=== PATIENT | male | born 1960 | race Caucasian/White ===

== ENCOUNTER 2016-03-25 17:18 | Inpatient (IN) ==
[2016-03-25] MEDS ORDERED: *HR* HYDROcodone/Acet 5/325 mg TABLET PO ONE (20:14)
--- NOTE | 2016-03-25 20:16 | Emergency Department Note ---
Disposition Clinical Impression: Edema of right lower extremity, Pain of right calf, Cellulitis of right lower extremity, Shortness of breath, Cough, Tachycardia, Sepsis Disposition: Still a Patient Condition: Fair Referrals: Dexter Cline DO [Primary Care Provider] - Forms: ED Satisfaction Letter Time of Disposition: 23:06 Extremity Problem HPI - General Chief complaint: ED Extremity Problem,Nontraumatic Stated complaint: Right foot red and swollen//cough Time Seen by Provider: 03/25/16 19:53 Source: patient, family Mode of arrival: ambulatory Limitations: no limitations Nursing Notes Reviewed: Yes Vital Signs Reviewed: Yes - History of Present Illness HPI Narrative: Patient is a 55-year-old male with past medical history of hypertension, diabetes. He presents today due to 2 complaints. First complaint is right lower extremity edema, calf pain, redness from right calf down to the right foot. Patient states that he had a previous right ankle sprain in September and had an initial swelling and mild redness then that went away. The past 2 weeks , he has had a return of the symptoms. Patient also states that around the same time that this began, he began having a nagging cough, shortness of breath that worsens when he is up walking around. He was diagnosed with bronchitis about a week ago and put on antibiotics and states that these do not help with his symptoms. He denies any chest pain, any other HEENT symptoms such as sinus congestion, runny nose, sore throat. He states that his cough is nonproductive. Denies any fevers, abdominal pain, nausea, vomiting, changes in bowel or bladder habits. Patient's was concerned about possible blood clot and encouraged him to be seen today. Pain Scale: 7 - Related Data Home Medications Medication Instructions Recorded Confirmed Canagliflozin [Invokana] 300 mg PO DAILY 09/25/15 09/25/15 Metformin [Glucophage] 500 mg PO DAILY 09/25/15 09/25/15 SitaGLIPtin [Januvia] 25 mg PO DAILY 09/25/15 09/25/15 Gabapentin [Neurontin] 600 mg PO 03/17/16 Insulin Glargine [Lantus] 0 unit 03/17/16 Insulin LISPRO [Humalog] 100 unit SQ 03/17/16 Lisinopril [Zestril] 5 mg PO 03/17/16 03/17/16 Ropinirole HCl [Requip] 2 mg PO 03/17/16 Previous Rx's Medication Instructions Recorded Benzonatate [Tessalon] 200 mg PO TID PRN #20 capsule 03/17/16 Doxycycline 100 mg PO BID #14 capsule 03/17/16 Allergies Allergy/AdvReac Type Severity Reaction Status Date / Time No Known Allergies Allergy Verified 03/25/16 17:50 Constitutional: Denies: fever ENT ED: Denies: ear pain, throat pain, congestion Cardiovascular: Denies: chest pain Respiratory: Reports: cough, dyspnea. Denies: wheezes, hemoptysis, sputum production Gastrointestinal: Denies: abdominal pain, nausea, vomiting, diarrhea Genitourinary: Denies: urgency, dysuria, frequency Musculoskeletal: Reports: myalgia, other (Lower extremity swelling). Denies: back pain, neck pain Integumentary: Denies: rash Neurological: Denies: headache, weakness, numbness, paresthesias Past Medical History - Past Medical History Attestation: Yes The following information was validated with the patient. Source: patient Medical history: Reports: diabetes, hypertension Psychiatric history: Reports: depression - Social History Smoking Status: Never smoker Smokeless Tobacco Status: No Alcohol use: Reports: none Drug use: Reports: none Physical Exam - General Limitations: no limitations General appearance: alert - Head Head exam: atraumatic, normocephalic, normal inspection - Eye Eye exam: Present: normal appearance, PERRL, EOMI - ENT ENT exam: normal exam, normal oropharynx, mucous membranes moist - Neck Neck exam: Present: normal inspection, full ROM, trachea midline - Chest Chest inspection: Present: normal inspection, symmetric chest wall rise - Respiratory Respiratory exam: Present: normal lung sounds bilaterally. Absent: respiratory distress, wheezes - Cardiovascular Cardiovascular exam: Present: normal rhythm, tachycardia, normal heart sounds - Abdominal Exam Abdominal exam: Present: soft, Non-Tender. Absent: tenderness, distention, guarding, rebound, rigidity - Extremities Exam Extremities exam: Present: other (Right lower extremity is edematous from knee down the foot. There is erythema from mid calf down that as well. There is calf pain on exam.) - Neurological Exam Neurological exam: Present: alert, oriented X3 - Psychiatric Psychiatric exam: Present: normal affect, normal mood - Skin Skin exam: Present: warm, dry, intact Course Course Narrative: Patient is tachycardic, oxygen saturation 93% on presentation but is now 97% when at rest. The rest of the vitals were within normal limits. Physical exam shows Right lower extremity is edematous from knee down the foot. There is erythema from mid calf down that as well. There is calf pain on exam. Due to right lower extremity edema, warmth, calf pain - current concern for right lower extremity DVT. This could be cellulitis as well, but will obtain ultrasound of the right lower extremity to rule out DVT. Also due to tachycardia, low oxygen saturation, and a swollen right lower extremity, there is also concern for pulmonary embolism. We will obtain CTA of the chest to rule out PE. Patient's upper respiratory symptoms may be due to a viral bronchitis since his symptoms did not go away with antibiotics, but a PE cannot be missed. 23:03 patient has leukocytosis. Patient also has tachycardia and source of infection right lower extremity cellulitis. Sepsis labs were ordered. So far, right lower extremity was negative for DVT. Currently waiting on CTA of the chest. Due to meeting sepsis criteria (not giving full sepsis fluids due to RLE edema and fear of fluid overload), if CTA is negative for PE, patient will still likely need to be admitted to the hospital for cellulitis of the right lower extremity and sepsis criteria. Will need IV antibiotics. Patient has been signed out to Dr. Robertson and Arturo Lancaster for further care and dispo Vital Signs Temperature 99.1 F 03/25/16 17:44 Pulse Rate 110 03/25/16 17:44 Respiratory Rate 18 03/25/16 17:44 Blood Pressure 146/95 03/25/16 17:44 O2 Sat by Pulse Oximetry 93 L 03/25/16 17:44 Temperature 99.1 F 03/25/16 17:44 Pulse Rate 117 03/25/16 22:08 Respiratory Rate 18 03/25/16 22:08 Blood Pressure 132/70 03/25/16 22:08 O2 Sat by Pulse Oximetry 95 03/25/16 22:08 Oxygen Delivery Oxygen Delivery Room Air Extremity Problem, [place] - [facility] Narrative Medical decision making narrative: patient has leukocytosis. Patient also has tachycardia and source of infection right lower extremity cellulitis. Sepsis labs were ordered. So far, right lower extremity was negative for DVT. Currently waiting on CTA of the chest. Due to meeting sepsis criteria, if CTA is negative for PE, patient will still likely need to be admitted to the hospital for cellulitis of the right lower extremity and sepsis criteria. Will need IV antibiotics. Patient has been signed out to Dr. Robertson and Arturo Lancaster for further care and dispo - Medical Records Medical records reviewed: Yes I reviewed the patient's medical records. - Lab Data Lab results reviewed: Yes I reviewed the patient's lab results. Result diagrams: 03/25/16 22:09 03/25/16 20:28 Lab Results 03/25/16 03/25/16 03/25/16 Range/Units 20:28 20:28 20:28 WBC 14.5 H (4.3-11.1) K/mcL RBC 4.17 L (4.19-5.50) M/mcL Hgb 12.2 L (12.9-16.9) g/dL Hct 37.7 (37.5-50.1) % MCV 90.4 (83.0-100.0) fL MCH 29.3 (28.0-33.3) pg MCHC 32.4 (31.6-35.5) g/dL RDW 12.9 (11.5-14.5) % Plt Count 570 H (140-400) K/mcL MPV 9.3 L (9.4-12.4) fL Immature Gran % 1.4 (0-4) % Seg Neutrophils % 75.6 % Lymphocytes % 11.8 % Monocytes % 8.1 % Eosinophils % 2.5 % Basophils % 0.6 % Neutrophils # 11.0 H (1.6-8.9) K/mcL Lymphocytes # 1.7 (0.6-4.6) K/mcL Monocytes # 1.2 (0.0-1.3) K/mcL Eosinophils # 0.4 (0.0-0.6) K/mcL Basophils # 0.1 (0.0-0.2) K/mcL Immature Plt Fraction (1.1-6.1) % PT (9.4-12.1) Seconds INR APTT (26.0-36.0) Seconds Sodium 137 (136-145) mEq/L Potassium 3.9 (3.5-4.5) mEq/L Chloride 101 (98-109) mEq/L Carbon Dioxide 25 (19-29) mEq/L BUN 15 (8-26) mg/dL Creatinine 0.84 (0.72-1.25) mg/dL Est GFR ( Amer) > 60 (> 60) Est GFR (Non-Af Amer) > 60 (> 60) BUN/Creatinine Ratio 18 (6-26) Glucose 263 H (70-99) mg/dL Calculated Osmolality 294 (280-300) Lactic Acid (0.5-2.2) mmol/L Calcium 9.1 (8.6-10.8) mg/dL Phosphorus 3.1 (2.3-4.7) mg/dL Magnesium 1.5 L (1.6-2.6) mg/dL Troponin I 0.01 (0-0.03) ng/mL 03/25/16 03/25/16 03/25/16 Range/Units 20:28 22:09 22:09 WBC 13.3 H (4.3-11.1) K/mcL RBC 4.09 L (4.19-5.50) M/mcL Hgb 11.9 L (12.9-16.9) g/dL Hct 36.0 L (37.5-50.1) % MCV 88.0 (83.0-100.0) fL MCH 29.1 (28.0-33.3) pg MCHC 33.1 (31.6-35.5) g/dL RDW 12.8 (11.5-14.5) % Plt Count 587 H (140-400) K/mcL MPV 9.1 L (9.4-12.4) fL Immature Gran % 1.4 (0-4) % Seg Neutrophils % 73.1 % Lymphocytes % 13.4 % Monocytes % 9.2 % Eosinophils % 2.4 % Basophils % 0.5 % Neutrophils # 9.8 H (1.6-8.9) K/mcL Lymphocytes # 1.8 (0.6-4.6) K/mcL Monocytes # 1.2 (0.0-1.3) K/mcL Eosinophils # 0.3 (0.0-0.6) K/mcL Basophils # 0.1 (0.0-0.2) K/mcL Immature Plt Fraction 1.5 (1.1-6.1) % PT 14.0 H (9.4-12.1) Seconds INR 1.3 APTT 30.4 (26.0-36.0) Seconds Sodium (136-145) mEq/L Potassium (3.5-4.5) mEq/L Chloride (98-109) mEq/L Carbon Dioxide (19-29) mEq/L BUN (8-26) mg/dL Creatinine (0.72-1.25) mg/dL Est GFR ( Amer) (> 60) Est GFR (Non-Af Amer) (> 60) BUN/Creatinine Ratio (6-26) Glucose (70-99) mg/dL Calculated Osmolality (280-300) Lactic Acid 1.2 (0.5-2.2) mmol/L Calcium (8.6-10.8) mg/dL Phosphorus (2.3-4.7) mg/dL Magnesium (1.6-2.6) mg/dL Troponin I (0-0.03) ng/mL - Radiology Data Radiology results reviewed: Yes I reviewed the patient's radiology results. - EKG Data EKG attestation: Yes I reviewed and interpreted this EKG. EKG results narrative: 03/25/2016 at 20:55. Sinus tachycardia. Rate 123. QTC 373. QRS 93. Normal axis. No acute ST elevation or depression. Possible Q-wave in lead 2, 3 there were present on previous EKG on 06/24/2010 S.B.A.R. - S.B.A.R. Situation: Demographics, MOA Background: Presenting Complaint, Relevant PMH, Meds, & Allergies Assessment: Vital Signs, Course and respsone to treatment, Exam Concerns, Patient/Family Expectation, Pertinant Lab Results, Outstanding Labs Recommendation: Barrier(s) to disposition, Recommendation based on pending studies, treatments, or consults S.B.A.R. Report Given to: Dr. Robertson and Arturo Lancaster S.B.A.ROwen Repor Time: 23:05 Attestation Statement - Attestation Attestation: I examined this patient and my medical decision-making was reviewed with the BUNCH TRIMMER MOLD/PA/Advanced Practice Nurse/Resident Physician. I agree with the documented findings, disposition and treatment plan as described except to the extent set forth below. Patient emergency department complaining of right leg redness pain and swelling. Patient has a history of a prior sprain of the ankle the leg to some similar symptoms a few months ago. Patient also complains of some cough and upper respiratory symptoms. No fever. On exam is awake alert no distress. Lungs are diminished but clear. Abdomen soft nontender. He has a moderate amount of swelling to the right leg below the knee. It is erythematous and warm. One area of seeping clear fluid. Plan. Labs and ultrasound.
[2016-03-25 20:52] LABS: Basophils # 0.1 K/mcL (0.0-0.2); Basophils % 0.6 %; Eosinophils # 0.4 K/mcL (0.0-0.6); Eosinophils % 2.5 %; Hematocrit 37.7 % (37.5-50.1); Hemoglobin 12.2 g/dL (12.9-16.9); Immature Granulocytes % 1.4 % (0-4); Lymphocytes # 1.7 K/mcL (0.6-4.6); Lymphocytes % 11.8 %; Mean Corpuscular HGB Conc 32.4 g/dL (31.6-35.5); Mean Corpuscular Hemoglobin 29.3 pg (28.0-33.3); Mean Corpuscular Volume 90.4 fL (83.0-100.0); Mean Platelet Volume 9.3 fL (9.4-12.4); Monocytes # 1.2 K/mcL (0.0-1.3); Monocytes % 8.1 %; Platelet Count 570 K/mcL (140-400); Red Blood Count 4.17 M/mcL (4.19-5.50); Red Cell Distribution Width 12.9 % (11.5-14.5); Segmented Neutrophils % 75.6 %
[2016-03-25 21:03] LABS: BUN/Creatinine Ratio 18 (6-26); Blood Urea Nitrogen 15 mg/dL (8-26); Calcium 9.1 mg/dL (8.6-10.8); Carbon Dioxide 25 mEq/L (19-29); Chloride 101 mEq/L (98-109); Glucose 263 mg/dL (70-99); Osmolality,Calculated 294 (280-300); Potassium 3.9 mEq/L (3.5-4.5); Sodium 137 mEq/L (136-145); eGFR For African Americans > 60 (> 60); eGFR For Non-African Americans > 60 (> 60)
[2016-03-25] MEDS ORDERED: 0.9 % Sodium Chloride 1,000 ML IVC ONE (21:19)
[2016-03-25 21:33] LABS: INR 1.3
[2016-03-25 21:35] LABS: Activated Partial Thrombo Time 30.4 Seconds (26.0-36.0)
[2016-03-25 21:37] LABS: Magnesium 1.5 mg/dL (1.6-2.6); Phosphorous 3.1 mg/dL (2.3-4.7)
[2016-03-25] MEDS ORDERED: Magnesium Oxide 400 MG TABLET PO STA (21:59)
[2016-03-25 22:16] LABS: Basophils # 0.1 K/mcL (0.0-0.2); Basophils % 0.5 %; Eosinophils # 0.3 K/mcL (0.0-0.6); Eosinophils % 2.4 %; Hemoglobin 11.9 g/dL (12.9-16.9); Immature Granulocytes % 1.4 % (0-4); Immature Platelets 1.5 % (1.1-6.1); Lymphocytes # 1.8 K/mcL (0.6-4.6); Lymphocytes % 13.4 %; Mean Corpuscular HGB Conc 33.1 g/dL (31.6-35.5); Mean Corpuscular Hemoglobin 29.1 pg (28.0-33.3); Mean Platelet Volume 9.1 fL (9.4-12.4); Monocytes # 1.2 K/mcL (0.0-1.3); Monocytes % 9.2 %; Neutrophils # 9.8 K/mcL (1.6-8.9); Platelet Count 587 K/mcL (140-400); Red Blood Count 4.09 M/mcL (4.19-5.50); Red Cell Distribution Width 12.8 % (11.5-14.5); Segmented Neutrophils % 73.1 %
[2016-03-25] MEDS ORDERED: Piperacillin/Tazobactam 3.375 GM in D5% in Water (Mini-Bag+) 100 ML IVPB ONE (23:24)
[2016-03-25] MEDS ORDERED: Vancomycin 1,000 MG in D5% in Water 250 ML IV ONE (23:24)
[2016-03-26 00:15] LABS: Bilirubin,Urine Negative (Negative); Blood,Urine Moderate (Negative); Clarity,Urine Clear (Clear); Color,Urine Yellow (Yellow); Glucose,Urine (UA) 100 mg/dL (Normal); Ketones,Urine Negative (Negative); Leukocyte Esterase,Urine Negative (Negative); Nitrite,Urine Negative (Negative); Protein,Urine 100 mg/dL (Neg-Trace); Specific Gravity,Urine > 1.030 (1.010-1.025); Urobilinogen,Urine Normal (Normal)
[2016-03-26 00:16] LABS: Bacteria,Urine None Seen per hpf (None-Few); Hyaline Casts,Urine None Seen per lpf (None-Few); Squamous Epithelial Cell,Urine Many per lpf (None-Few); WBC,Urine 0-3 per hpf (0-3)
[2016-03-26] MEDS ORDERED: *HR* Morphine 2 MG/ML SYRINGE IV ONE (00:37)
[2016-03-26] MEDS ORDERED: Naloxone 0.4 MG/ML INJ IVP PRN (02:12)
[2016-03-26] MEDS ORDERED: Ondansetron 4 MG/2 ML VIAL IVP PRN (02:12)
--- NOTE | 2016-03-26 02:34 | Internal Med History&Physical ---
Date of Encounter: 03/26/16 Time of Encounter: 01:00 Assessment and Plan (1) Sepsis Current visit: Yes Status: Acute Patient came in with HR 110, white count 14.5, Lactic acid 1.2 Source of infection: RLE cellulitis Urine negative for infection. RLE doppler ultrasound pending, and non vascular ultrasound pending. Patient has RLE posterior induration. Blood culture x2 pending. IVF 75ml/hr ABX coverage with vanc and zosyn Will trend lactate Qualifiers: Sepsis type: sepsis due to unspecified organism Qualified Code(s): A41.9 - Sepsis, unspecified organism (2) Cellulitis of right lower extremity Current visit: Yes Status: Acute plan as above. (3) Diabetes Current visit: Yes Status: Acute Levemir 55 units BID low dose sliding scale last A1C on 08/24/15 was 7.8 will re-check A1C consult to senior health educator. Qualifiers: Diabetes mellitus type: type 2 Diabetes mellitus complication status: with neurologic complications Diabetes mellitus complication detail: with unspecified neuropathy Diabetes mellitus alf insulin use: unspecified lobsterman insulin use status Qualified Code(s): E11.40 - Type 2 diabetes mellitus with diabetic neuropathy, unspecified (4) HLD (hyperlipidemia) Current visit: Yes Status: Acute Qualifiers: Hyperlipidemia type: unspecified Qualified Code(s): E78.5 - Hyperlipidemia , unspecified (5) GERD (gastroesophageal reflux disease) Current visit: Yes Status: Acute Continue home med prilosec. Qualifiers: Esophagitis presence: esophagitis presence not specified Qualified Code(s) : K21.9 - Gastro-esophageal reflux disease without esophagitis (6) HTN (hypertension) Current visit: Yes Status: Acute continue lisinopril. Qualifiers: Hypertension type: essential hypertension Qualified Code(s): I10 - Essential (primary) hypertension (7) Morbid obesity with BMI of 40.0-44.9, adult Current visit: Yes Status: Chronic Patient counseled on importance of diet and glycemic control to reduce mortality. Diabetic diet (8) DVT prophylaxis Current visit: Yes Status: Acute Heparin SQ Internal Medicine - H&P: HPI Chief complaint: Right LE pain Admitted From: Emergency Dept Plans for Post Hospital Care: Home History of present illness: PCP: Son Renteria Mr. Kaur is a 55 year old male with PMHx of DM2, HTN, HLD, asthma, diabetic neuropathy, obesity, anxiety, depression. Patient states that back in September he sprained his right ankle and has had ankle swelling ever since. He sees an Orthopedic doctor for this. About two weeks ago he was diagnosed with bronchitis , and went to urgent care and got Tessalon perles, inhaler and doxycycline. He states that he finished his course of doxycycline. About a week and a half ago, he noticed that his right lower extremity became more swollen, and started becoming more erythematous. Patient states that his right leg became more painful as well, and rates the pain as 9/10. Patient denies chest pain, admits to mild intermittent shortness of breath. He denies subjective fevers but reports chills. He had one episode of nausea with vomiting several days ago. He has a cough with clear sputum production, no hemoptysis. Patient denies diarrhea , dizziness, diaphoresis, blood in urine or blood in stool, denies episodes of syncope. He says he tries to check his sugar 3x/day and it usually runs between 140-200. Social Hx: lives at home with his . denies smoking, denies alcohol and illicit drug use. Family Hx: mom from COPD in 80s, dad at 89 from MVA. One brother had a stroke from AVM, one sister is pre-diabetic. Surgical History: wisdom teeth removed. Past Med Surg Social Fam HX - Past Medical History Medical history: diabetes, hypertension Psychiatric history: depression - Social History Smoking Status: Never smoker Smokeless Tobacco Status: No Alcohol use: none Drug use: none Internal Medicine - H&P: Meds Canagliflozin [Invokana] 300 mg PO DAILY 09/25/15 [History] Metformin [Glucophage] 500 mg PO DAILY 09/25/15 [History] SitaGLIPtin [Januvia] 25 mg PO DAILY 09/25/15 [History] Gabapentin [Neurontin] 600 mg PO TID 03/17/16 [History] Insulin Glargine [Lantus] 0 unit SQ BID 03/17/16 [History] Insulin LISPRO [Humalog] 0 unit SQ TIDWM 03/17/16 [History] Lisinopril [Zestril] 40 mg PO DAILY 03/17/16 [History] Ropinirole HCl [Requip] 2 mg PO 03/17/16 [History] Allergies No Known Allergies Allergy (Verified 03/25/16 17:50) All Systems PM: A 10-system review of systems was performed and is negative for pertinent findings except as documented above in the HPI. - Constitutional Constitutional: chills, no excessive sweating, no fever(s), no falls - EENT Eyes: no blurry vision - Cardiovascular Cardiovascular ROS IM: no chest pain, no diaphoresis, no lightheadedness, no syncope - Respiratory Respiratory: cough, no hemoptysis - Gastrointestinal Gastrointestinal: nausea, no abdominal pain, no hematemesis - Genitourinary Genitourinary ROS male: no hematuria - Musculoskeletal Musculoskeletal ROS IM: no arthralgias - Neurological Neurological ROS: no dizziness, no frequent falls - Constitutional Vitals: Temp Pulse Resp BP Pulse Ox 99.1 F 110 18 163/98 97 03/25/16 17:44 03/26/16 01:00 03/26/16 02:04 03/26/16 02:04 03/26/16 01:00 General appearance: Present: A&O X 3, pleasant, no acute distress, obese, answers questions appropriately - Head Head exam: Present: atraumatic, normocephalic - Eye Eye exam: Present: PERRL. Absent: scleral icterus - ENT ENT exam: Present: mucous membranes moist - Neck Neck exam general surgery: Present: supple, trachea midline - Respiratory Additional comments: fine crackles noted in the right lower lobe. - Cardiovascular Cardiovascular exam: Present: tachycardia - GI/Abdominal GI/Abdominal exam: Present: distended, soft. Absent: guarding, tenderness - Extremities Exam Additional comments: left lower extremity: anterior discoloration. Right lower extremity: warm, erythematous up to tibial tuberosity, swelling from ankle all the way up to the knee, skin of heel is dry with some cracks, no crepitous noted, feel some induration on posteroir mid-calf. - Neurological Exam Neurological exam: Present: alert, oriented X3, strengths equal and symetr throughout - Psychiatric Psychiatric exam: Present: normal affect, normal mood Internal Med - H&P Results - Labs CBC & Chem 7: 03/25/16 22:09 03/25/16 20:28
[2016-03-26] MEDS ORDERED: D5% in Water 1,000 ML IV PRN ×2 (02:42→03:47)
[2016-03-26] MEDS ORDERED: Dextrose Gel 15 GM PO PRN ×4 (02:42→03:47)
[2016-03-26] MEDS ORDERED: *HR* Dextrose 50 % in Water (Syg) 50 ML SYRINGE IVP PRN ×2 (02:42→03:47)
[2016-03-26] MEDS: 0.9 % Sodium Chloride 1,000 ML IVC SCH (03:04)
--- NOTE | 2016-03-26 03:08 | Event Note ---
Date of Encounter: 03/26/16 Time of Encounter: 03:06 Patient seen and examined with medical office technologist. Agree with assessment plan. Briefly patient presents with progressively worsening cellulitis of the right leg for the past 10 days while he was on doxycycline for acute bronchitis. Patient has features of sepsis. Patient will be hydrated aggressively. Broad- spectrum antibiotic with vanc and zosyn. I am concerned about fluid collection in the right leg and will get a STAT ultrasound ruled out abscess formation as well as DVT. It will be continuously monitored. He denies prior history of MRSA. Full code
[2016-03-26 04:55] LABS: BUN/Creatinine Ratio 15 (6-26); Blood Urea Nitrogen 11 mg/dL (8-26); Calcium 8.2 mg/dL (8.6-10.8); Carbon Dioxide 23 mEq/L (19-29); Chloride 102 mEq/L (98-109); Glucose 219 mg/dL (70-99); Osmolality,Calculated 286 (280-300); Potassium 3.6 mEq/L (3.5-4.5); Sodium 135 mEq/L (136-145); eGFR For African Americans > 60 (> 60); eGFR For Non-African Americans > 60 (> 60)
--- NOTE | 2016-03-26 04:58 | Emergency Department Note ---
START Narrative - START START: For this encounter, I have reviewed the resident, CHANGE MANAGEMENT FACILITATOR, or PA documentation, treatment plan, and medical decision making; and I have had face to face time with this patient. 55-year-old male received in signout from Dr. De La Paz pending admission to the hospital. Patient was admitted to the hospital without difficulty. Patient denied further complaints or concerns. He has antibiotics started for a right lower extremity cellulitis. Patient's pain is controlled. Patient is comfortable with the plan.
[2016-03-26 04:59] LABS: Basophils # 0.1 K/mcL (0.0-0.2); Basophils % 0.5 %; Eosinophils # 0.3 K/mcL (0.0-0.6); Eosinophils % 2.3 %; Hematocrit 34.9 % (37.5-50.1); Hemoglobin 11.5 g/dL (12.9-16.9); Immature Granulocytes % 1.3 % (0-4); Lymphocytes % 14.8 %; Mean Corpuscular Hemoglobin 29.2 pg (28.0-33.3); Mean Corpuscular Volume 88.6 fL (83.0-100.0); Mean Platelet Volume 9.3 fL (9.4-12.4); Monocytes # 1.2 K/mcL (0.0-1.3); Monocytes % 8.8 %; Neutrophils # 9.9 K/mcL (1.6-8.9); Platelet Count 513 K/mcL (140-400); Red Blood Count 3.94 M/mcL (4.19-5.50); Red Cell Distribution Width 12.8 % (11.5-14.5); Segmented Neutrophils % 72.3 %
[2016-03-26] MEDS: *HR* Morphine 2 MG/ML SYRINGE IVP PRN (05:48)
[2016-03-26] MEDS: Acetaminophen 325 MG TABLET PO PRN ×2 (05:48→19:46)
[2016-03-26] MEDS ORDERED: Insulin LISPRO 300 UNITS/3 ML VIAL SQ SCH ×3 (07:30→21:00)
[2016-03-26] MEDS: Gabapentin 300 MG CAPSULE PO SCH ×3 (08:21→19:45)
[2016-03-26] MEDS: Insulin DETEMIR 100 UNIT/ML X5UNITS SQ SCH ×2 (08:22→22:46)
[2016-03-26] MEDS: Piperacillin/Tazobactam 3.375 GM in D5% in Water (Mini-Bag+) 100 ML IVPB SCH ×2 (08:22→18:08)
[2016-03-26] MEDS: *HR* Heparin 5,000 UNIT/ML VIAL SQ SCH ×3 (08:22→22:51)
[2016-03-26] MEDS: Insulin LISPRO 300 UNITS/3 ML VIAL SQ SCH ×3 (08:22→18:09)
[2016-03-26] MEDS ORDERED: Vancomycin 2,000 MG in D5% in Water 250 ML IVPB SCH (09:00)
[2016-03-26] MEDS ORDERED: Insulin DETEMIR 100 UNIT/ML X5UNITS SQ SCH (09:00)
--- NOTE | 2016-03-26 10:42 | Electrocardiograph Report ---
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
[2016-03-26] MEDS: Vancomycin 2,000 MG in D5% in Water 500 ML IVPB SCH ×2 (12:10→22:46)
--- NOTE | 2016-03-26 14:23 | Internal Med Progress Note ---
Date of Encounter: 03/26/16 Time of Encounter: 10:45 - Assessment and plan (1) Sepsis Current Visit: Yes Status: Acute Assessment and plan: Patient with fever, tachycardia, leukocytosis and RLE cellulitis Patient is still tachycardic, but improving, encourage liberal fluid intake Tmax 100.1 at 03/26/16 0400 He has been started on broad spectrum antibiotics Source of RLE cellulitis seems to be multiple cracked skin lesions on calloused right heel Right calf induration , tense, blood supply is not compromised as dorsalis pedis pulse is palpable RLE USS shows abscess,surgery has been consulted and called on the phone, will follow recs Blood culutre has been sent, follow Continue current antibiotics, monitor Vanco trough BP is WNL,resume home meds, Lactate is WNL Qualifiers: Sepsis type: sepsis due to unspecified organism Qualified Code(s): A41.9 - Sepsis, unspecified organism (2) Cellulitis of right lower extremity Current Visit: Yes Status: Acute Assessment and plan: As above, with abscess R/O DVT, follow doppler USS (3) Diabetes Current Visit: Yes Status: Chronic Assessment and plan: Continue Levemir , lispro and sliding scale Monitor FS ACHS Diabetic diet last A1C on 08/24/15 was 7.8 Follow repeat A1C consult to contact centre supervisor. Qualifiers: Diabetes mellitus type: type 2 Diabetes mellitus complication status: with neurologic complications Diabetes mellitus complication detail: with unspecified neuropathy Diabetes mellitus audio visual aide insulin use: unspecified audio visual aide insulin use status Qualified Code(s): E11.40 - Type 2 diabetes mellitus with diabetic neuropathy, unspecified (4) GERD (gastroesophageal reflux disease) Current Visit: Yes Status: Chronic Assessment and plan: Resume home meds Qualifiers: Esophagitis presence: esophagitis presence not specified Qualified Code(s) : K21.9 - Gastro-esophageal reflux disease without esophagitis (5) HLD (hyperlipidemia) Current Visit: Yes Status: Chronic Assessment and plan: Resume home meds Qualifiers: Hyperlipidemia type: unspecified Qualified Code(s): E78.5 - Hyperlipidemia , unspecified (6) HTN (hypertension) Current Visit: Yes Status: Chronic Assessment and plan: Resume home meds Qualifiers: Hypertension type: essential hypertension Qualified Code(s): I10 - Essential (primary) hypertension (7) Morbid obesity with BMI of 40.0-44.9, adult Current Visit: Yes Status: Chronic - Subjective Interval history: 55 Y/O M with PMH of DM, HTN, HLD, GERD, Morbid Obesity Patient is admitted and being managed for sepsis secondary to RLE cellulitis Seen at bedside, complaining of pain on RLE - Constitutional Vitals: Temp Pulse Resp BP Pulse Ox 98.8 F 102 20 143/83 95 03/26/16 11:15 03/26/16 11:15 03/26/16 11:15 03/26/16 11:15 03/26/16 11:15 General appearance: Present: A&O X 3, morbidly obese, pleasant, answers questions appropriately - Head Head exam: Present: atraumatic, normocephalic - Eye Eye exam: Present: PERRL, conjuntiva pink, sclera anicteric Pupils: Present: PERRL - Neck Neck exam general surgery: Present: supple, trachea midline. Absent: lymphadenopathy - Respiratory Respiratory exam: Present: CTAB. Absent: accessory muscle use, rales, rhonchi, wheezes - Cardiovascular Cardiovascular exam: Present: RRR, +S1, +S2. Absent: diastolic murmur, gallop, rubs, systolic murmur - GI/Abdominal GI/Abdominal exam: Present: normal bowel sounds, soft, no peritoneal signs. Absent: distended, tenderness - Extremities Exam Additional comments: RLE redness and tenderness from the posterior calf to the ankle, multiple induration sites worse posteriorly, associated tenderness and swelling, pulses are present, including dorsalis pedis LLE essentially looks normal - Neurological Exam Neurological exam: Present: CN II-XII intact, oriented X3, no focal deficits. Absent: pronater drift, facial droop, speech deficit - Skin Skin exam: Present: dry Internal Medicine: Result - Labs CBC & Chem 7: 03/26/16 04:22 03/26/16 04:22 Labs: Short CBC 03/26/16 Range/Units 04:22 WBC 13.7 H (4.3-11.1) K/mcL Hgb 11.5 L (12.9-16.9) g/dL Hct 34.9 L (37.5-50.1) % Plt Count 513 H (140-400) K/mcL Neutrophils # 9.9 H (1.6-8.9) K/mcL BMP 03/26/16 04:22 Sodium 135 L Potassium 3.6 Chloride 102 Carbon Dioxide 23 BUN 11 Creatinine 0.72 Glucose 219 H Calcium 8.2 L - ABG Interpretation ABG results: PT/INR, D-dimer PT 14.0 Seconds (9.4-12.1) H 03/25/16 20:28 - Impressions Impressions Extremity Ultrasound 03/26/16 09:00 IMPRESSION: Large fluid collection in the subcutaneous soft tissues along the distal right calf, concerning for abscess formation in the setting of infectious symptoms. Diffuse edema in the subcutaneous soft tissues, which can be seen with cellulitis. D/ / Maged Marshall MD / Maged Marshall MD Interpreting Provider: Maged Marshall MD Consult Discharge Plan - Plan Referrals: Dexter Cline DO [Primary Care Provider] - 04/01/16 10:30 am
[2016-03-26] MEDS ORDERED: Lidocaine/EPI 1:100k 1% 20 ML VIAL INFILT ONE (15:24)
--- NOTE | 2016-03-26 16:53 | Venous Imaging Report ---
LE Venous Duplex Patient Name:Edwin Kaur Order Number:[id number] Procedure Date:03/25/2016 Date:1960Age:55 yrs Gender:Male Location:[facility], [place] ED Room #: ER12 Hardness Inspector:Ning Garcia Referring MD:Partha Da Silva DO pie bakery laborer:Dexter Cline DO Reading MD:Binu Naranjo MD , FACS Primary Indications:RLE edema, erythema, warmth, concern for DVT Secondary Indications: Impressions: Right lower extremity: normal superficial and deep exam. Left lower extremity: normal contralateral exam. Recommendations: After imaging the patient returned to their room. Gave vascular preliminary results to Karen in emergency department. Test completed on 03/25/2016 at 9:36:00 pm. Findings Venous Duplex Results: Right: Venous imaging of the lower extremity reveals full patency and normal vessel compressibility of the right distal iliac, right common femoral, right superficial femoral, right popliteal, right posterior tibial, right peroneal, right great saphenous and right lesser saphenous. Doppler signals in the evaluated veins were normal. Left: Venous imaging of the lower extremity reveals full patency and normal vessel compressibility of the left common femoral. Doppler signals in the evaluated veins were normal. Prior Study: No prior study available for comparison. Lower Extremity Venous Duplex Side Vein Compress Spontaneous Flow Augment Diameter (cm) Depth (cm) Right Distal Iliac Normal Yes Phasic Yes Right Common Femoral Normal Yes Phasic Yes Right Superficial Femoral Normal Yes Phasic Yes Right Popliteal Normal Yes Phasic Yes Right Posterior Tibial Normal Yes Phasic Yes Right Peroneal Normal Yes Phasic Yes Right Great Saphenous Normal Yes Phasic Yes Right Lesser Saphenous Normal Yes Phasic Yes Left Common Femoral Normal Yes Phasic Yes Updated by Binu Naranjo MD, FACS on 03/26/2016 4:49:03 PM Binu Naranjo MD electronically signed on 03/26/2016 4:49:26 PM with status of Final
--- NOTE | 2016-03-26 17:12 | General Surgery Consult Note ---
Date of Encounter: 03/26/16 Time of Encounter: 16:30 Assessment and Plan (1) Cellulitis of right lower extremity Current Visit: Yes Status: Acute (2) Sepsis Current Visit: Yes Status: Acute The patient's sepsis is related to the abscess the right lower extremity. This will need to be incised and drained. I will take cultures from the abscess. Qualifiers: Sepsis type: sepsis due to unspecified organism Qualified Code(s): A41.9 - Sepsis, unspecified organism History of Present Illness Consult date: 03/26/16 History of present illness: The patient has had swelling of his right lower extremity for several days. This become quite painful. He was evaluated in the emergency room with painful ambulation cellulitis and swelling of his right lower extremity. A follow-up ultrasound demonstrated a large fluid collection consistent with abscess. He now presents for incision and drainage of abscess. Past Med Surg Social Fam HX - Past Medical History Medical history: diabetes, hypertension Psychiatric history: depression - Social History Smoking Status: Never smoker Smokeless Tobacco Status: No Alcohol use: none Drug use: none - Family History Father Hx Family Endocrine Disorder: Yes (DM) Mother Hx Family Respiratory Disorders: Yes (COPD) Medications and Allergies Canagliflozin [Invokana] 300 mg PO DAILY 09/25/15 [History] Metformin [Glucophage] 1,000 mg PO BID 09/25/15 [History] SitaGLIPtin [Januvia] 50 mg PO DAILY 09/25/15 [History] Gabapentin [Neurontin] 600 mg PO TID 03/17/16 [History] Insulin Glargine [Lantus] 55 unit SQ BID 03/17/16 [History] Insulin LISPRO [Humalog] 50 unit SQ TIDWM 03/17/16 [History] Lisinopril [Zestril] 40 mg PO DAILY 03/17/16 [History] Ropinirole HCl [Requip] 1 mg PO HS 03/17/16 [History] Albuterol Sulfate [Albuterol Inhaler] 1 - 2 puff IH Q6H PRN 03/26/16 [History] Aspirin [Lo-Dose Aspirin EC] 81 mg PO DAILY 03/26/16 [History] Atorvastatin [Lipitor] 10 mg PO HS 03/26/16 [History] Duloxetine HCl [Cymbalta] 60 mg PO DAILY 03/26/16 [History] Fluticasone/Salmeterol [Advair 250-50 Diskus] 2 puff IH BID 03/26/16 [History] Metoprolol XL (24 HR) Succ [Toprol XL] 50 mg PO DAILY 03/26/16 [History] Allergies No Known Allergies Allergy (Verified 03/25/16 17:50) Review of Systems All systems PM: A 10-system review of systems was performed and is negative for pertinent findings except as documented above in the HPI. The patient specifically denies infectious disorder such as HIV hepatitis or tuberculosis. General Surgery Exam Initial Vital Signs Temp Pulse Resp BP Pulse Ox 99.1 F 110 18 146/95 93 L 03/25/16 17:44 03/25/16 17:44 03/25/16 17:44 03/25/16 17:44 03/25/16 17:44 - General physical appearance well developed, well nourished, no distress, obese - Neck no masses, no bruits, trachea midline, no lymphadectomy, no venous distension - Respiratory normal expansion, normal respiratory effort, clear to percussion, clear to auscultation - Cardiovascular Cardiovascular exam: Present: RRR, 15, 16 - Abdomen Abdomen general surgery: Present: bowel sounds present, soft, non tender - Neurologic Present: CN 2-12 grossly intact, normal coordination, normal sensation - Musculoskeletal Present: other (Swelling of the right posterior distal lower leg with palpable fluctuance) - Psychiatric Psychiatric general surgery: Present: appropriate, oriented to person, oriented to place, oriented to time, speech is normal, memory intact Exam Initial Vital Signs Temp Pulse Resp BP Pulse Ox 99.1 F 110 18 146/95 93 L 03/25/16 17:44 03/25/16 17:44 03/25/16 17:44 03/25/16 17:44 03/25/16 17:44 Results - Labs 03/26/16 04:22 03/26/16 04:22 Abnormal lab results WBC 13.7 K/mcL (4.3-11.1) H 03/26/16 04:22 RBC 3.94 M/mcL (4.19-5.50) L 03/26/16 04:22 Hgb 11.5 g/dL (12.9-16.9) L 03/26/16 04:22 Hct 34.9 % (37.5-50.1) L 03/26/16 04:22 Plt Count 513 K/mcL (140-400) H 03/26/16 04:22 MPV 9.3 fL (9.4-12.4) L 03/26/16 04:22 Neutrophils # 9.9 K/mcL (1.6-8.9) H 03/26/16 04:22 PT 14.0 Seconds (9.4-12.1) H 03/25/16 20:28 Sodium 135 mEq/L (136-145) L 03/26/16 04:22 Glucose 219 mg/dL (70-99) H 03/26/16 04:22 POC Glucose 236 (58-89) H 03/26/16 16:02 Calcium 8.2 mg/dL (8.6-10.8) L 03/26/16 04:22 Magnesium 1.4 mg/dL (1.6-2.6) L 03/26/16 04:22 Ur Specific [place] > 1.030 (1.010-1.025) H 03/25/16 23:51 Urine Protein 100 mg/dL (Neg-Trace) H 03/25/16 23:51 Urine Glucose (UA) 100 mg/dL (Normal) H 03/25/16 23:51 Urine Blood Moderate (Negative) H 03/25/16 23:51 Urine Microscopic RBC 5-15 per hpf (0-3) H 03/25/16 23:51 Ur Squamous Epith Cells Many per lpf (None-Few) H 03/25/16 23:51 Diabetes panel 03/26/16 Range/Units 04:22 Sodium 135 L (136-145) mEq/L Potassium 3.6 (3.5-4.5) mEq/L Chloride 102 (98-109) mEq/L Carbon Dioxide 23 (19-29) mEq/L BUN 11 (8-26) mg/dL Creatinine 0.72 (0.72-1.25) mg/dL Glucose 219 H (70-99) mg/dL Calcium 8.2 L (8.6-10.8) mg/dL Calcium panel 03/26/16 Range/Units 04:22 Calcium 8.2 L (8.6-10.8) mg/dL Pituitary panel 03/26/16 Range/Units 04:22 Sodium 135 L (136-145) mEq/L Potassium 3.6 (3.5-4.5) mEq/L Chloride 102 (98-109) mEq/L Carbon Dioxide 23 (19-29) mEq/L BUN 11 (8-26) mg/dL Creatinine 0.72 (0.72-1.25) mg/dL Glucose 219 H (70-99) mg/dL Calcium 8.2 L (8.6-10.8) mg/dL Adrenal panel 03/26/16 Range/Units 04:22 Sodium 135 L (136-145) mEq/L Potassium 3.6 (3.5-4.5) mEq/L Chloride 102 (98-109) mEq/L Carbon Dioxide 23 (19-29) mEq/L BUN 11 (8-26) mg/dL Creatinine 0.72 (0.72-1.25) mg/dL Glucose 219 H (70-99) mg/dL Calcium 8.2 L (8.6-10.8) mg/dL All other labs normal. - Imaging Additional studies: I personally reviewed the ultrasound right lower extremity. I concur that there is a large fluid collection right lower extremity consistent with abscess. Consult Discharge Plan - Plan Referrals: Dexter Cline DO [Primary Care Provider] - 04/01/16 10:30 am
--- NOTE | 2016-03-26 17:21 | Procedure Note ---
Date of procedure: 03/26/16 Pre-op diagnosis: Abscess right lower extremity Post-op diagnosis: same Procedure: After informed consent and appropriate patient identification and timeout the right lower extremity was prepped and draped in sterile fashion utilizing 89 solution standard techniques. Lateralizing ellis identified. I anesthetized the skin with 7 mL 1% lidocaine with epinephrine. Using 11 blade I entered the abscess cavity. I removed and an enormous amount of pus perhaps 100 mL. There was about 25 mL bleeding. I used my finger to break up all of the loculations on the inside of the abscess cavity. The abscess cavity was cultured for aerobic and anaerobic cultures. I packed the abscess cavity with iodoform. A sterile dressing was applied. The patient tolerated the procedure well. Anesthesia: local Surgeon: Juan Manuel Estimated blood loss (cc): 25 Condition: stable Disposition: floor
[2016-03-26] MEDS: rOPINIRole 1 MG TABLET PO SCH (19:45)
[2016-03-27] MEDS: 0.9 % Sodium Chloride 1,000 ML IVC SCH (01:13)
[2016-03-27] MEDS: Piperacillin/Tazobactam 3.375 GM in D5% in Water (Mini-Bag+) 100 ML IVPB SCH ×3 (01:14→17:11)
[2016-03-27 04:19] LABS: Basophils # 0.1 K/mcL (0.0-0.2); Basophils % 0.5 %; Eosinophils # 0.4 K/mcL (0.0-0.6); Hematocrit 34.7 % (37.5-50.1); Hemoglobin 11.4 g/dL (12.9-16.9); Lymphocytes # 1.9 K/mcL (0.6-4.6); Lymphocytes % 13.9 %; Mean Corpuscular HGB Conc 32.9 g/dL (31.6-35.5); Mean Corpuscular Hemoglobin 29.3 pg (28.0-33.3); Mean Corpuscular Volume 89.2 fL (83.0-100.0); Mean Platelet Volume 9.1 fL (9.4-12.4); Monocytes # 1.2 K/mcL (0.0-1.3); Monocytes % 8.8 %; Neutrophils # 9.6 K/mcL (1.6-8.9); Platelet Count 476 K/mcL (140-400); Red Blood Count 3.89 M/mcL (4.19-5.50); Red Cell Distribution Width 12.7 % (11.5-14.5); Segmented Neutrophils % 71.8 %
[2016-03-27 04:43] LABS: BUN/Creatinine Ratio 12 (6-26); Blood Urea Nitrogen 10 mg/dL (8-26); Calcium 8.2 mg/dL (8.6-10.8); Carbon Dioxide 27 mEq/L (19-29); Chloride 100 mEq/L (98-109); Glucose 194 mg/dL (70-99); Osmolality,Calculated 284 (280-300); Potassium 3.7 mEq/L (3.5-4.5); Sodium 135 mEq/L (136-145); eGFR For African Americans > 60 (> 60); eGFR For Non-African Americans > 60 (> 60)
[2016-03-27] MEDS: *HR* Heparin 5,000 UNIT/ML VIAL SQ SCH ×2 (06:32→17:10)
[2016-03-27] MEDS: *HR* Morphine 2 MG/ML SYRINGE IVP PRN ×3 (06:37→22:25)
[2016-03-27] MEDS: Aspirin Enteric Coated 81 MG Tablet PO SCH (08:47)
[2016-03-27] MEDS: Metoprolol XL (24 HR) Succ 50 MG TAB.ER.24H PO SCH (08:47)
[2016-03-27] MEDS: Gabapentin 300 MG CAPSULE PO SCH ×3 (08:47→21:47)
[2016-03-27] MEDS: Insulin LISPRO 300 UNITS/3 ML VIAL SQ SCH ×3 (08:48→17:12)
[2016-03-27] MEDS: Insulin DETEMIR 100 UNIT/ML X5UNITS SQ SCH ×2 (08:58→21:47)
[2016-03-27] MEDS: Vancomycin 2,000 MG in D5% in Water 500 ML IVPB SCH ×2 (12:26→21:46)
--- NOTE | 2016-03-27 14:25 | Internal Med Progress Note ---
Date of Encounter: 03/27/16 Time of Encounter: 09:40 - Assessment and plan (1) Sepsis Current Visit: Yes Status: Acute Assessment and plan: Patient with fever, tachycardia, leukocytosis and RLE cellulitis Tachycardia has improved Tmax 101.5 at 03/26/16 s/p I and D of RLE abscess Leukocytosis slowly improving Source of RLE cellulitis seems to be multiple cracked skin lesions on calloused right heel Blood and sputum cultures preliminary negative Follow wound cultures Continue Vancomycin and Zosyn, pharmacy to dose Monitor Vanco trough Qualifiers: Sepsis type: sepsis due to unspecified organism Qualified Code(s): A41.9 - Sepsis, unspecified organism (2) Cellulitis of right lower extremity Current Visit: Yes Status: Acute Assessment and plan: As above, with abscess NO DVT by Doppler (3) Diabetes Current Visit: Yes Status: Chronic Assessment and plan: Continue Levemir , lispro and sliding scale Monitor FS ACHS Diabetic diet last A1C on 08/24/15 was 7.8 Follow repeat A1C consult to continuous crusher operator. Qualifiers: Diabetes mellitus type: type 2 Diabetes mellitus complication status: with neurologic complications Diabetes mellitus complication detail: with unspecified neuropathy Diabetes mellitus terminal make up operator insulin use: unspecified terminal make up operator insulin use status Qualified Code(s): E11.40 - Type 2 diabetes mellitus with diabetic neuropathy, unspecified (4) GERD (gastroesophageal reflux disease) Current Visit: Yes Status: Chronic Assessment and plan: Resume home meds Qualifiers: Esophagitis presence: esophagitis presence not specified Qualified Code(s) : K21.9 - Gastro-esophageal reflux disease without esophagitis (5) HLD (hyperlipidemia) Current Visit: Yes Status: Chronic Assessment and plan: Resume home meds Qualifiers: Hyperlipidemia type: unspecified Qualified Code(s): E78.5 - Hyperlipidemia , unspecified (6) HTN (hypertension) Current Visit: Yes Status: Chronic Assessment and plan: Resume home meds Qualifiers: Hypertension type: essential hypertension Qualified Code(s): I10 - Essential (primary) hypertension (7) Morbid obesity with BMI of 40.0-44.9, adult Current Visit: Yes Status: Chronic - Subjective Interval history: 55 Y/O M with PMH of DM, HTN, HLD, GERD, Morbid Obesity Patient is admitted and being managed for sepsis secondary to RLE cellulitis with abscess he is seen at bedside this morning, no new complains He is s/p Incision and drainage of RLE abscess by surgery yesterday Awaiting cultures of same - Constitutional Vitals: Temp Pulse Resp BP Pulse Ox 99.3 F 90 17 123/73 95 03/27/16 11:28 03/27/16 11:28 03/27/16 11:28 03/27/16 11:28 03/27/16 11:28 General appearance: Present: A&O X 3, morbidly obese, pleasant, no acute distress, answers questions appropriately - Head Head exam: Present: atraumatic, normocephalic - Eye Eye exam: Present: PERRL, conjuntiva pink, sclera anicteric Pupils: Present: PERRL - Neck Neck exam general surgery: Present: supple, trachea midline. Absent: lymphadenopathy - Respiratory Respiratory exam: Present: CTAB. Absent: accessory muscle use, rales, rhonchi, wheezes - Cardiovascular Cardiovascular exam: Present: RRR, +S1, +S2. Absent: diastolic murmur, gallop, rubs, systolic murmur - GI/Abdominal GI/Abdominal exam: Present: normal bowel sounds, soft, no peritoneal signs. Absent: distended, tenderness - Extremities Exam Additional comments: Right lower extremity in woundd ressing, stained with serosanguinous fluid posteriorly around the calf. Redness, edema, +++, mildy tender - Neurological Exam Neurological exam: Present: CN II-XII intact, oriented X3, no focal deficits. Absent: pronater drift, facial droop, speech deficit - Skin Skin exam: Present: dry Internal Medicine: Result - Labs CBC & Chem 7: 03/27/16 03:59 03/27/16 03:59 Labs: Short CBC 03/27/16 Range/Units 03:59 WBC 13.3 H (4.3-11.1) K/mcL Hgb 11.4 L (12.9-16.9) g/dL Hct 34.7 L (37.5-50.1) % Plt Count 476 H (140-400) K/mcL Neutrophils # 9.6 H (1.6-8.9) K/mcL BMP 03/27/16 03:59 Sodium 135 L Potassium 3.7 Chloride 100 Carbon Dioxide 27 BUN 10 Creatinine 0.81 Glucose 194 H Calcium 8.2 L - ABG Interpretation ABG results: PT/INR, D-dimer PT 14.0 Seconds (9.4-12.1) H 03/25/16 20:28 Consult Discharge Plan - Plan Referrals: Dexter Cline DO [Primary Care Provider] - 04/01/16 10:30 am
--- NOTE | 2016-03-27 15:23 | General Surgery Progress Note ---
<Jason Cota - Last Filed: 03/27/16 16:49> Date of Encounter: 03/27/16 Time of Encounter: 07:20 - Assessment and Plan (1) Cellulitis of right lower extremity Current Visit: Yes Status: Acute Abscess incised and drained by Dr. Manuel on 03/25/16. Leukocytosis slowly improving; 1.5>13.7>13.3 Pending wound cultures Currently on Vancomycin and Zosyn for sepsis secondary to cellulitis with abscess formation. Daily wound care: originally packed with iodoform gauze, this is to be replaced today with 1 inch plain gauze with secondary covering of gauze, ABD, and tape to secure. Will need outpatient follow up to see Dr. Manuel in wound clinic, message left for vulcanized fiber unit operator, will need to verify appt has been made. (2) Sepsis Current Visit: Yes Status: Acute See plan above. Qualifiers: Sepsis type: sepsis due to unspecified organism Qualified Code(s): A41.9 - Sepsis, unspecified organism Subjective Patient reports: no new complaints, feels better, still having pain, pain is less, fever (101.5 at 19:36 on 03/26/16, afebrile since) Objective Vital Signs - Last 8 Hours Temp Pulse Resp BP Pulse Ox 03/27/16 15:13 98.5 F 92 19 167/81 94 L 03/27/16 11:28 99.3 F 90 17 123/73 95 Intake and Output 03/26/16 03/27/16 03/27/16 23:59 07:59 15:59 Intake Total 1690 / 1690 1250 / 1250 840 / 840 Output Total 1100 / 1100 900 / 900 900 / 900 Balance 590 / 590 350 / 350 -60 / -60 Intake: IV Fluids 1100 / 1100 600 / 600 0.9 % Sodium Chloride 1, 1000 / 1000 000 ML @ 75 mls/hr IVC . [id number] [facility] Rx#: [id number] Zosyn 3.375 GM In 100 / 100 100 / 100 Dextrose 5% (Minibag+) 100 ML 100 ML @ 25 mls/hr IVPB Q8HR [facility] Rx#: [id number] Vancocin 2,000 MG In 500 / 500 Dextrose 5% 500 ML @ 250 mls/hr IVPB Q12H [facility] Rx#: [id number] Oral 590 / 590 650 / 650 840 / 840 Output: Urine 1100 / 1100 900 / 900 900 / 900 Other: Meal Dinner Lunch Percent of Meal Consumed 100% 100% Weight 147.096 kg Blood Glucose* 236 179 229 Patient Weight 03/27/16 23:59 Weight 147.096 kg - General physical appearance well developed, well nourished, no distress, obese - Eyes normal ocular movement - ENT normal mucosa, atraumatic, normocephalic - Neck Neck exam: trachea midline - Respiratory normal respiratory effort, clear to auscultation - Cardiovascular Cardiovascular exam: Present: RRR - Abdomen Abdomen: Present: bowel sounds present, soft, non tender - Incision Incision: Present: erythema (eythema of lower right calf; upper calf and foot spared of any erythema.), serosanguinous, open (open wound to Right medial calf) - Neurologic CN 2-12 grossly intact - Psychiatric oriented to time, oriented to person, oriented to place, speech is normal, memory intact - Labs 03/27/16 03:59 03/27/16 03:59 Diabetes panel 03/27/16 Range/Units 03:59 Sodium 135 L (136-145) mEq/L Potassium 3.7 (3.5-4.5) mEq/L Chloride 100 (98-109) mEq/L Carbon Dioxide 27 (19-29) mEq/L BUN 10 (8-26) mg/dL Creatinine 0.81 (0.72-1.25) mg/dL Glucose 194 H (70-99) mg/dL Calcium 8.2 L (8.6-10.8) mg/dL Calcium panel 03/27/16 Range/Units 03:59 Calcium 8.2 L (8.6-10.8) mg/dL Pituitary panel 03/27/16 Range/Units 03:59 Sodium 135 L (136-145) mEq/L Potassium 3.7 (3.5-4.5) mEq/L Chloride 100 (98-109) mEq/L Carbon Dioxide 27 (19-29) mEq/L BUN 10 (8-26) mg/dL Creatinine 0.81 (0.72-1.25) mg/dL Glucose 194 H (70-99) mg/dL Calcium 8.2 L (8.6-10.8) mg/dL Adrenal panel 03/27/16 Range/Units 03:59 Sodium 135 L (136-145) mEq/L Potassium 3.7 (3.5-4.5) mEq/L Chloride 100 (98-109) mEq/L Carbon Dioxide 27 (19-29) mEq/L BUN 10 (8-26) mg/dL Creatinine 0.81 (0.72-1.25) mg/dL Glucose 194 H (70-99) mg/dL Calcium 8.2 L (8.6-10.8) mg/dL Consult Discharge Plan - Plan Referrals: Juan Manuel MD [Partnered Physician] - 04/07/16 8:30 am (This appointment will be in Wound Care Clinic. ) Dexter Cline DO [Primary Care Provider] - 04/01/16 10:30 am <Juan Manuel - Last Filed: 03/28/16 16:33> - Assessment and Plan (1) Cellulitis of right lower extremity Current Visit: Yes Status: Acute (2) Sepsis Current Visit: Yes Status: Acute Qualifiers: Sepsis type: sepsis due to unspecified organism Qualified Code(s): A41.9 - Sepsis, unspecified organism Objective Intake and Output 03/28/16 03/28/16 03/28/16 07:59 15:59 23:59 Intake Total 900 / 900 730 / 730 Output Total 225 / 225 Balance 900 / 900 505 / 505 Intake: IV Fluids 100 / 100 70 / 70 Zosyn 3.375 GM In 100 / 100 70 / 70 Dextrose 5% (Minibag+) 100 ML 100 ML @ 25 mls/hr IVPB Q8HR [facility] Rx#: [id number] Oral 800 / 800 660 / 660 Output: Urine 225 / 225 Other: Meal Lunch Percent of Meal Consumed 90% Blood Glucose* 180 265 - Labs 03/28/16 04:11 03/28/16 04:11 Diabetes panel 03/28/16 03/28/16 Range/Units 04:11 04:11 Sodium 136 (136-145) mEq/L Potassium 3.6 (3.5-4.5) mEq/L Chloride 99 (98-109) mEq/L Carbon Dioxide 28 (19-29) mEq/L BUN 10 (8-26) mg/dL Creatinine 0.78 (0.72-1.25) mg/dL Glucose 162 H (70-99) mg/dL Hemoglobin A1c 9.2 H ( - 5.6) % Calcium 8.2 L (8.6-10.8) mg/dL Calcium panel 03/28/16 Range/Units 04:11 Calcium 8.2 L (8.6-10.8) mg/dL Pituitary panel 03/28/16 Range/Units 04:11 Sodium 136 (136-145) mEq/L Potassium 3.6 (3.5-4.5) mEq/L Chloride 99 (98-109) mEq/L Carbon Dioxide 28 (19-29) mEq/L BUN 10 (8-26) mg/dL Creatinine 0.78 (0.72-1.25) mg/dL Glucose 162 H (70-99) mg/dL Calcium 8.2 L (8.6-10.8) mg/dL Adrenal panel 03/28/16 Range/Units 04:11 Sodium 136 (136-145) mEq/L Potassium 3.6 (3.5-4.5) mEq/L Chloride 99 (98-109) mEq/L Carbon Dioxide 28 (19-29) mEq/L BUN 10 (8-26) mg/dL Creatinine 0.78 (0.72-1.25) mg/dL Glucose 162 H (70-99) mg/dL Calcium 8.2 L (8.6-10.8) mg/dL - Attending Attestation I examined this patient and my medical decision-making was reviewed with the PRODUCTION MAINTENANCE TECHNICIAN/PA/Advanced Practice Nurse/Resident Physician. I agree with the documented findings, disposition and treatment plan as described except to the extent set forth below. Juan Manuel MD FACS
[2016-03-27] MEDS: rOPINIRole 1 MG TABLET PO SCH (21:47)
[2016-03-28] MEDS: *HR* Heparin 5,000 UNIT/ML VIAL SQ SCH ×4 (01:00→23:51)
[2016-03-28] MEDS: Piperacillin/Tazobactam 3.375 GM in D5% in Water (Mini-Bag+) 100 ML IVPB SCH ×2 (01:00→09:22)
[2016-03-28 04:42] LABS: Basophils # 0.1 K/mcL (0.0-0.2); Basophils % 0.6 %; Eosinophils # 0.6 K/mcL (0.0-0.6); Eosinophils % 4.3 %; Hematocrit 35.6 % (37.5-50.1); Hemoglobin 11.5 g/dL (12.9-16.9); Immature Granulocytes % 2.4 % (0-4); Lymphocytes # 2.2 K/mcL (0.6-4.6); Lymphocytes % 15.7 %; Mean Corpuscular HGB Conc 32.3 g/dL (31.6-35.5); Mean Corpuscular Hemoglobin 28.5 pg (28.0-33.3); Mean Corpuscular Volume 88.1 fL (83.0-100.0); Mean Platelet Volume 9.2 fL (9.4-12.4); Neutrophils # 9.9 K/mcL (1.6-8.9); Platelet Count 511 K/mcL (140-400); Red Blood Count 4.04 M/mcL (4.19-5.50); Red Cell Distribution Width 12.3 % (11.5-14.5)
[2016-03-28 04:58] LABS: BUN/Creatinine Ratio 13 (6-26); Blood Urea Nitrogen 10 mg/dL (8-26); Calcium 8.2 mg/dL (8.6-10.8); Carbon Dioxide 28 mEq/L (19-29); Chloride 99 mEq/L (98-109); Glucose 162 mg/dL (70-99); Hemoglobin A1C 9.2 %; Osmolality,Calculated 285 (280-300); Potassium 3.6 mEq/L (3.5-4.5); Sodium 136 mEq/L (136-145); eGFR For African Americans > 60 (> 60); eGFR For Non-African Americans > 60 (> 60)
[2016-03-28] MEDS ORDERED: Ampicillin/Sulbactam 3,000 MG in 0.9 % Sodium Chloride Mini Bag 100 ML IVPB ONE (09:14)
[2016-03-28] MEDS: Insulin DETEMIR 100 UNIT/ML X5UNITS SQ SCH (09:21)
[2016-03-28] MEDS: *HR* Morphine 2 MG/ML SYRINGE IVP PRN ×3 (09:23→23:52)
[2016-03-28] MEDS: Insulin LISPRO 300 UNITS/3 ML VIAL SQ SCH ×3 (09:25→17:52)
[2016-03-28] MEDS: Metoprolol XL (24 HR) Succ 50 MG TAB.ER.24H PO SCH (09:26)
[2016-03-28] MEDS: Aspirin Enteric Coated 81 MG Tablet PO SCH (09:26)
[2016-03-28] MEDS: Gabapentin 300 MG CAPSULE PO SCH ×3 (09:26→23:52)
--- NOTE | 2016-03-28 14:58 | Internal Med Progress Note ---
Date of Encounter: 03/28/16 Time of Encounter: 10:15 - Assessment and plan (1) Sepsis Current Visit: Yes Status: Acute Assessment and plan: Patient presented with with fever, tachycardia, leukocytosis and RLE cellulitis Tachycardia has improved Tmax 101.5 at 03/26/16, afebrile for the past 24 hours s/p I and D of RLE abscess Leukocytosis not improving, however, patient clinically improving Source of RLE cellulitis seems to be multiple cracked skin lesions on calloused right heel Blood and sputum cultures preliminary negative Wound culture with Strp. agalactie-drug of choice is penicillin Has received 2 days of IV Vancomycin and Zosyn Will de-escalate to Unasyn Monitor for next 24 hrs , rpt CBC a.m Qualifiers: Sepsis type: sepsis due to unspecified organism Qualified Code(s): A41.9 - Sepsis, unspecified organism (2) Cellulitis of right lower extremity Current Visit: Yes Status: Acute Assessment and plan: As above, with abscess NO DVT by Doppler (3) Diabetes Current Visit: Yes Status: Chronic Assessment and plan: Continue Levemir , lispro and sliding scale Monitor FS ACHS Diabetic diet last A1C on 08/24/15 was 7.8, repeat 9.2 Qualifiers: Diabetes mellitus type: type 2 Diabetes mellitus complication status: with neurologic complications Diabetes mellitus complication detail: with unspecified neuropathy Diabetes mellitus placement director insulin use: unspecified placement director insulin use status Qualified Code(s): E11.40 - Type 2 diabetes mellitus with diabetic neuropathy, unspecified (4) GERD (gastroesophageal reflux disease) Current Visit: Yes Status: Chronic Assessment and plan: Resume home meds Qualifiers: Esophagitis presence: esophagitis presence not specified Qualified Code(s) : K21.9 - Gastro-esophageal reflux disease without esophagitis (5) HLD (hyperlipidemia) Current Visit: Yes Status: Chronic Assessment and plan: Continue home meds Qualifiers: Hyperlipidemia type: unspecified Qualified Code(s): E78.5 - Hyperlipidemia , unspecified (6) HTN (hypertension) Current Visit: Yes Status: Chronic Assessment and plan: Continue home meds Qualifiers: Hypertension type: essential hypertension Qualified Code(s): I10 - Essential (primary) hypertension (7) Morbid obesity with BMI of 40.0-44.9, adult Current Visit: Yes Status: Chronic - Subjective Interval history: 55 Y/O M with PMH of DM, HTN, HLD, GERD, Morbid Obesity Patient is admitted and being managed for sepsis secondary to RLE cellulitis with abscess he is seen at bedside this morning, no new complains He is s/p Incision and drainage of RLE abscess by surgery 02/25/16 Wound culture growing Strep.agalactiae Patient has been afebrile for 24 hours now - Constitutional Vitals: Temp Pulse Resp BP Pulse Ox 98.1 F 89 15 137/81 93 L 03/28/16 07:06 03/28/16 07:06 03/28/16 07:06 03/28/16 07:06 03/28/16 07:06 General appearance: Present: A&O X 3, morbidly obese, pleasant, no acute distress, answers questions appropriately - Head Head exam: Present: atraumatic, normocephalic - Eye Eye exam: Present: PERRL, conjuntiva pink, sclera anicteric Pupils: Present: PERRL - Neck Neck exam general surgery: Present: supple, trachea midline. Absent: lymphadenopathy - Respiratory Respiratory exam: Present: CTAB. Absent: accessory muscle use, rales, rhonchi, wheezes - Cardiovascular Cardiovascular exam: Present: RRR, +S1, +S2. Absent: diastolic murmur, gallop, rubs, systolic murmur - GI/Abdominal GI/Abdominal exam: Present: normal bowel sounds, soft, no peritoneal signs. Absent: distended, tenderness - Extremities Exam Extremities exam: Present: warm, radial pulses palpable and symetrical. Absent : calf tenderness, cyanotic, pedal edema Additional comments: Right LE swelling and hyperemia decreased, wound dressing clean and dry. - Neurological Exam Neurological exam: Present: CN II-XII intact, oriented X3, no focal deficits. Absent: pronater drift, facial droop, speech deficit - Skin Skin exam: Present: dry, intact Internal Medicine: Result - Labs CBC & Chem 7: 03/28/16 04:11 03/28/16 04:11 Labs: Short CBC 03/28/16 Range/Units 04:11 WBC 14.1 H (4.3-11.1) K/mcL Hgb 11.5 L (12.9-16.9) g/dL Hct 35.6 L (37.5-50.1) % Plt Count 511 H (140-400) K/mcL Neutrophils # 9.9 H (1.6-8.9) K/mcL BMP 03/28/16 04:11 Sodium 136 Potassium 3.6 Chloride 99 Carbon Dioxide 28 BUN 10 Creatinine 0.78 Glucose 162 H Calcium 8.2 L - ABG Interpretation ABG results: PT/INR, D-dimer PT 14.0 Seconds (9.4-12.1) H 03/25/16 20:28 Consult Discharge Plan - Plan Referrals: Juan Manuel MD [Partnered Physician] - 04/07/16 8:30 am (This appointment will be in Wound Care Clinic. ) Dexter Cline DO [Primary Care Provider] - 04/01/16 10:30 am
[2016-03-28] MEDS: Ampicillin/Sulbactam 3,000 MG in 0.9 % Sodium Chloride Mini Bag 100 ML IVPB SCH ×2 (15:43→23:52)
[2016-03-28] MEDS: Acetaminophen 325 MG TABLET PO PRN (15:49)
--- NOTE | 2016-03-28 17:16 | General Surgery Progress Note ---
<Rashmi Gupta Tammy - Last Filed: 03/28/16 17:13> Date of Encounter: 03/28/16 Time of Encounter: 17:00 - Assessment and Plan (1) Cellulitis of right lower extremity Status: Acute Continue daily wound packing- 1/2 inch plain gauze, cover with ABD pad and wrap with kerlex, tape to secure daily IV antibiotics Repeat labs in the am Supportive care and pain control F/U in wound care center 04/[address] Manuel Subjective Patient reports: feels better, still having pain, pain is less, afebrile Objective Vital Signs - Last 8 Hours Temp Pulse Resp BP Pulse Ox 03/28/16 15:00 98.3 F 89 20 165/82 93 L Intake and Output 03/28/16 03/28/16 03/28/16 07:59 15:59 23:59 Intake Total 900 / 900 730 / 730 Output Total 225 / 225 Balance 900 / 900 505 / 505 Intake: IV Fluids 100 / 100 70 / 70 Zosyn 3.375 GM In 100 / 100 70 / 70 Dextrose 5% (Minibag+) 100 ML 100 ML @ 25 mls/hr IVPB Q8HR [facility] Rx#: [id number] Oral 800 / 800 660 / 660 Output: Urine 225 / 225 Other: Meal Lunch Percent of Meal Consumed 90% Blood Glucose* 180 265 208 - General physical appearance well developed, well nourished, no distress, obese - Eyes normal ocular movement - ENT normal mucosa, atraumatic, normocephalic - Neck Neck exam: trachea midline - Respiratory normal respiratory effort - Cardiovascular Cardiovascular exam: Present: RRR - Abdomen Abdomen: Present: soft, non tender - Incision Incision: Present: erythema, indurated, serosanguinous (small amount ), open ( RLE) - Integumentary other (See wound/incision care above) - Neurologic CN 2-12 grossly intact - Psychiatric oriented to time, oriented to person, oriented to place, speech is normal, memory intact - Labs 03/28/16 04:11 03/28/16 04:11 Diabetes panel 03/28/16 03/28/16 Range/Units 04:11 04:11 Sodium 136 (136-145) mEq/L Potassium 3.6 (3.5-4.5) mEq/L Chloride 99 (98-109) mEq/L Carbon Dioxide 28 (19-29) mEq/L BUN 10 (8-26) mg/dL Creatinine 0.78 (0.72-1.25) mg/dL Glucose 162 H (70-99) mg/dL Hemoglobin A1c 9.2 H ( - 5.6) % Calcium 8.2 L (8.6-10.8) mg/dL Calcium panel 03/28/16 Range/Units 04:11 Calcium 8.2 L (8.6-10.8) mg/dL Pituitary panel 03/28/16 Range/Units 04:11 Sodium 136 (136-145) mEq/L Potassium 3.6 (3.5-4.5) mEq/L Chloride 99 (98-109) mEq/L Carbon Dioxide 28 (19-29) mEq/L BUN 10 (8-26) mg/dL Creatinine 0.78 (0.72-1.25) mg/dL Glucose 162 H (70-99) mg/dL Calcium 8.2 L (8.6-10.8) mg/dL Adrenal panel 03/28/16 Range/Units 04:11 Sodium 136 (136-145) mEq/L Potassium 3.6 (3.5-4.5) mEq/L Chloride 99 (98-109) mEq/L Carbon Dioxide 28 (19-29) mEq/L BUN 10 (8-26) mg/dL Creatinine 0.78 (0.72-1.25) mg/dL Glucose 162 H (70-99) mg/dL Calcium 8.2 L (8.6-10.8) mg/dL Consult Discharge Plan - Plan Instructions: Amoxicillin/Clavulanate Potassium (By mouth), Cellulitis (GEN), Sepsis (GEN) Additional Instructions: Wound care- cleanse with soap and water, pack with 1/2 inch plain packing, cover with ABD pad, wrap with kerlex and tape to secure daily May shower Referrals: Dexter Cline DO [Primary Care Provider] - 04/01/16 10:30 am Juan Manuel MD [Partnered Physician] - 04/07/16 8:30 am (This appointment will be in Wound Care Clinic. ) Prescriptions: Acetaminophen [Tylenol] 650 mg PO Q6HR PRN #20 tablet PRN Reason: Mild Pain (1-3) Amoxicillin/Clavulanate [Augmentin] 875 mg PO BIDWM #12 tablet - Attending Attestation I examined this patient and my medical decision-making was reviewed with the PLASTICS WORKER/PA/Advanced Practice Nurse/Resident Physician. I agree with the documented findings, disposition and treatment plan as described except to the extent set forth below. <Juan Manuel - Last Filed: 04/01/16 13:03> - Assessment and Plan (1) Cellulitis of right lower extremity Status: Acute (2) Sepsis Status: Acute Qualifiers: Sepsis type: sepsis due to unspecified organism Qualified Code(s): A41.9 - Sepsis, unspecified organism Objective - Labs 03/30/16 07:11 03/29/16 04:20 - Attending Attestation Juan Manuel MD FACS
[2016-03-28] MEDS: rOPINIRole 1 MG TABLET PO SCH (23:52)
[2016-03-29] MEDS: Insulin DETEMIR 100 UNIT/ML X5UNITS SQ SCH ×3 (00:07→20:12)
[2016-03-29 04:57] LABS: Basophils # 0.1 K/mcL (0.0-0.2); Basophils % 0.6 %; Eosinophils # 0.5 K/mcL (0.0-0.6); Eosinophils % 3.4 %; Hematocrit 37.3 % (37.5-50.1); Hemoglobin 12.2 g/dL (12.9-16.9); Immature Granulocytes % 3.3 % (0-4); Lymphocytes % 13.6 %; Mean Corpuscular HGB Conc 32.7 g/dL (31.6-35.5); Mean Corpuscular Hemoglobin 28.9 pg (28.0-33.3); Mean Corpuscular Volume 88.4 fL (83.0-100.0); Mean Platelet Volume 9.6 fL (9.4-12.4); Monocytes # 1.1 K/mcL (0.0-1.3); Monocytes % 7.3 %; Neutrophils # 10.4 K/mcL (1.6-8.9); Platelet Count 540 K/mcL (140-400); Red Blood Count 4.22 M/mcL (4.19-5.50); Red Cell Distribution Width 12.6 % (11.5-14.5); Segmented Neutrophils % 71.8 %
[2016-03-29 05:13] LABS: BUN/Creatinine Ratio 15 (6-26); Blood Urea Nitrogen 12 mg/dL (8-26); Calcium 8.8 mg/dL (8.6-10.8); Carbon Dioxide 25 mEq/L (19-29); Chloride 99 mEq/L (98-109); Glucose 145 mg/dL (70-99); Osmolality,Calculated 282 (280-300); Potassium 3.8 mEq/L (3.5-4.5); Sodium 135 mEq/L (136-145); eGFR For African Americans > 60 (> 60); eGFR For Non-African Americans > 60 (> 60)
[2016-03-29] MEDS: Ampicillin/Sulbactam 3,000 MG in 0.9 % Sodium Chloride Mini Bag 100 ML IVPB SCH ×4 (05:19→22:24)
[2016-03-29] MEDS: *HR* Heparin 5,000 UNIT/ML VIAL SQ SCH ×3 (05:19→22:27)
[2016-03-29] MEDS: Metoprolol XL (24 HR) Succ 50 MG TAB.ER.24H PO SCH (09:20)
[2016-03-29] MEDS: Aspirin Enteric Coated 81 MG Tablet PO SCH (09:20)
[2016-03-29] MEDS: Gabapentin 300 MG CAPSULE PO SCH ×3 (09:20→20:12)
[2016-03-29] MEDS: Insulin LISPRO 300 UNITS/3 ML VIAL SQ SCH ×3 (10:48→17:46)
--- NOTE | 2016-03-29 13:38 | General Surgery Progress Note ---
Date of Encounter: 03/29/16 Time of Encounter: 08:30 - Assessment and Plan (1) Cellulitis of right lower extremity Current Visit: Yes Status: Acute Continue daily wound packing- 1/2 inch plain gauze, cover with ABD pad and wrap with kerlex, tape to secure daily Patient to get up and shower today, will hae wound repacked after. IV antibiotics Repeat labs in the am Supportive care and pain control F/U in wound care center 04/[address] Manuel Subjective Patient reports: no new complaints, feels better, still having pain, pain is less, afebrile Objective Vital Signs - Last 8 Hours Temp Pulse Resp BP Pulse Ox 03/29/16 10:59 97.8 F 92 16 169/86 93 L 03/29/16 07:02 98.2 F 93 18 122/85 94 L Intake and Output 03/28/16 03/29/16 03/29/16 23:59 07:59 15:59 Intake Total 100 / 100 200 / 200 480 / 480 Output Total 450 / 450 Balance 100 / 100 -250 / -250 480 / 480 Intake: IV Fluids 100 / 100 200 / 200 Unasyn 3,000 MG In 0.9 % 100 / 100 200 / 200 Sodium Chloride (Mini-Bag +) 100 ML @ 200 mls/hr IVPB Q6H [facility] Rx#: [id number] Oral 480 / 480 Output: Urine 450 / 450 Other: Meal Lunch Percent of Meal Consumed 75% Weight 146.51 kg Blood Glucose* 130 138 204 Patient Weight 03/29/16 23:59 Weight 146.51 kg - General physical appearance well developed, well nourished, no distress, obese - Eyes normal ocular movement - ENT normal mucosa, atraumatic, normocephalic - Neck Neck exam: trachea midline - Respiratory normal respiratory effort - Cardiovascular Cardiovascular exam: Present: RRR - Abdomen Abdomen: Present: bowel sounds present, soft, non tender - Incision Incision: Present: erythema, indurated, serosanguinous (small amount), open (RLE ) - Neurologic CN 2-12 grossly intact - Psychiatric oriented to time, oriented to person, oriented to place, speech is normal, memory intact - Labs 03/29/16 04:20 03/29/16 04:20 Diabetes panel 03/29/16 Range/Units 04:20 Sodium 135 L (136-145) mEq/L Potassium 3.8 (3.5-4.5) mEq/L Chloride 99 (98-109) mEq/L Carbon Dioxide 25 (19-29) mEq/L BUN 12 (8-26) mg/dL Creatinine 0.82 (0.72-1.25) mg/dL Glucose 145 H (70-99) mg/dL Calcium 8.8 (8.6-10.8) mg/dL Calcium panel 03/29/16 Range/Units 04:20 Calcium 8.8 (8.6-10.8) mg/dL Pituitary panel 03/29/16 Range/Units 04:20 Sodium 135 L (136-145) mEq/L Potassium 3.8 (3.5-4.5) mEq/L Chloride 99 (98-109) mEq/L Carbon Dioxide 25 (19-29) mEq/L BUN 12 (8-26) mg/dL Creatinine 0.82 (0.72-1.25) mg/dL Glucose 145 H (70-99) mg/dL Calcium 8.8 (8.6-10.8) mg/dL Adrenal panel 03/29/16 Range/Units 04:20 Sodium 135 L (136-145) mEq/L Potassium 3.8 (3.5-4.5) mEq/L Chloride 99 (98-109) mEq/L Carbon Dioxide 25 (19-29) mEq/L BUN 12 (8-26) mg/dL Creatinine 0.82 (0.72-1.25) mg/dL Glucose 145 H (70-99) mg/dL Calcium 8.8 (8.6-10.8) mg/dL Consult Discharge Plan - Plan Additional Instructions: Wound care- cleanse with soap and water, pack with 1/2 inch plain packing, cover with ABD pad, wrap with kerlex and tape to secure daily May shower Referrals: Juan Manuel MD [Partnered Physician] - 04/07/16 8:30 am (This appointment will be in Wound Care Clinic. ) Dexter Cline DO [Primary Care Provider] - 04/01/16 10:30 am
--- NOTE | 2016-03-29 14:32 | Internal Med Progress Note ---
Date of Encounter: 03/29/16 Time of Encounter: 11:35 - Assessment and plan (1) Sepsis Current Visit: Yes Status: Acute Assessment and plan: Patient presented with with fever, tachycardia, leukocytosis and RLE cellulitis Tachycardia has improved Tmax 101.5 at 03/26/16, afebrile for the past 48hrs s/p I and D of RLE abscess Leukocytosis not improving, however, patient clinically improving Source of RLE cellulitis seems to be multiple cracked skin lesions on calloused right heel Blood and sputum cultures preliminary negative Wound culture with Strp. agalactie-drug of choice is penicillin Has received 2 days of IV Vancomycin and Zosyn Today is second day on Unasyn Will continue Unasyn for now 500cc bolus as all cell lines in CBC are elevated Rpt CBC a.m Surgery evaluation appreciated Consult SW for home wound care Qualifiers: Sepsis type: sepsis due to unspecified organism Qualified Code(s): A41.9 - Sepsis, unspecified organism (2) Cellulitis of right lower extremity Current Visit: Yes Status: Acute Assessment and plan: As above, with abscess NO DVT by Doppler (3) Diabetes Current Visit: Yes Status: Chronic Assessment and plan: Continue Levemir , lispro and sliding scale Monitor FS ACHS Diabetic diet last A1C on 08/24/15 was 7.8, repeat 9.2 Qualifiers: Diabetes mellitus type: type 2 Diabetes mellitus complication status: with neurologic complications Diabetes mellitus complication detail: with unspecified neuropathy Diabetes mellitus senior living insulin use: unspecified senior living insulin use status Qualified Code(s): E11.40 - Type 2 diabetes mellitus with diabetic neuropathy, unspecified (4) GERD (gastroesophageal reflux disease) Current Visit: Yes Status: Chronic Assessment and plan: Continue home meds Qualifiers: Esophagitis presence: esophagitis presence not specified Qualified Code(s) : K21.9 - Gastro-esophageal reflux disease without esophagitis (5) HLD (hyperlipidemia) Current Visit: Yes Status: Chronic Assessment and plan: Continue home meds Qualifiers: Hyperlipidemia type: unspecified Qualified Code(s): E78.5 - Hyperlipidemia , unspecified (6) HTN (hypertension) Current Visit: Yes Status: Chronic Assessment and plan: Continue home meds Qualifiers: Hypertension type: essential hypertension Qualified Code(s): I10 - Essential (primary) hypertension (7) Morbid obesity with BMI of 40.0-44.9, adult Current Visit: Yes Status: Chronic - Subjective Interval history: 55 Y/O M with PMH of DM, HTN, HLD, GERD, Morbid Obesity Patient is admitted and being managed for sepsis secondary to RLE cellulitis with abscess He is s/p Incision and drainage of RLE abscess by surgery 02/25/16 Wound culture growing Strep.agalactiae Patient has been afebrile for over 48 hours Leukocytsis remains persistent he is seen at bedside with spouse , no new complains - Constitutional Vitals: Temp Pulse Resp BP Pulse Ox 97.8 F 92 16 169/86 93 L 03/29/16 10:59 03/29/16 10:59 03/29/16 10:59 03/29/16 10:59 03/29/16 10:59 General appearance: Present: A&O X 3, morbidly obese, pleasant, no acute distress, answers questions appropriately - Head Head exam: Present: atraumatic, normocephalic - Eye Eye exam: Present: PERRL, conjuntiva pink, sclera anicteric Pupils: Present: PERRL - Neck Neck exam general surgery: Present: supple, trachea midline. Absent: lymphadenopathy - Respiratory Respiratory exam: Present: CTAB. Absent: accessory muscle use, rales, rhonchi, wheezes - Cardiovascular Cardiovascular exam: Present: RRR, +S1, +S2. Absent: diastolic murmur, gallop, rubs, systolic murmur - GI/Abdominal GI/Abdominal exam: Present: normal bowel sounds, soft, no peritoneal signs. Absent: distended, tenderness - Extremities Exam Extremities exam: Present: warm, radial pulses palpable and symetrical. Absent : calf tenderness, cyanotic, pedal edema Additional comments: Right lower extremity decreased redness and swelling Wound dressing clean - Neurological Exam Neurological exam: Present: CN II-XII intact, oriented X3, no focal deficits. Absent: pronater drift, facial droop, speech deficit - Skin Skin exam: Present: dry Internal Medicine: Result - Labs CBC & Chem 7: 03/29/16 04:20 03/29/16 04:20 Labs: Short CBC 03/29/16 Range/Units 04:20 WBC 14.4 H (4.3-11.1) K/mcL Hgb 12.2 L (12.9-16.9) g/dL Hct 37.3 L (37.5-50.1) % Plt Count 540 H (140-400) K/mcL Neutrophils # 10.4 H (1.6-8.9) K/mcL BMP 03/29/16 04:20 Sodium 135 L Potassium 3.8 Chloride 99 Carbon Dioxide 25 BUN 12 Creatinine 0.82 Glucose 145 H Calcium 8.8 - ABG Interpretation ABG results: PT/INR, D-dimer PT 14.0 Seconds (9.4-12.1) H 03/25/16 20:28 Consult Discharge Plan - Plan Additional Instructions: Wound care- cleanse with soap and water, pack with 1/2 inch plain packing, cover with ABD pad, wrap with kerlex and tape to secure daily May shower Referrals: Juan Manuel MD [Partnered Physician] - 04/07/16 8:30 am (This appointment will be in Wound Care Clinic. ) Dexter Cline DO [Primary Care Provider] - 04/01/16 10:30 am
[2016-03-29] MEDS ORDERED: 0.9 % Sodium Chloride 500 ML IVC ONE (14:35)
[2016-03-29] MEDS ORDERED: 0.9 % Sodium Chloride 1,000 ML ONE (15:47)
[2016-03-29] MEDS: rOPINIRole 1 MG TABLET PO SCH (20:11)
[2016-03-29] MEDS ORDERED: Lactulose Oral Soln 20 GM/30 ML UDC PO SCH (23:00)
[2016-03-30] MEDS: Ampicillin/Sulbactam 3,000 MG in 0.9 % Sodium Chloride Mini Bag 100 ML IVPB SCH ×2 (03:20→09:32)
[2016-03-30] MEDS: *HR* Heparin 5,000 UNIT/ML VIAL SQ SCH (06:18)
[2016-03-30 08:13] LABS: Basophils # 0.1 K/mcL (0.0-0.2); Basophils % 0.6 %; Eosinophils # 0.4 K/mcL (0.0-0.6); Eosinophils % 3.1 %; Hematocrit 37.5 % (37.5-50.1); Hemoglobin 12.3 g/dL (12.9-16.9); Immature Granulocytes % 2.4 % (0-4); Lymphocytes # 1.9 K/mcL (0.6-4.6); Lymphocytes % 13.3 %; Mean Corpuscular HGB Conc 32.8 g/dL (31.6-35.5); Mean Corpuscular Volume 88.4 fL (83.0-100.0); Mean Platelet Volume 9.4 fL (9.4-12.4); Monocytes % 7.3 %; Neutrophils # 10.2 K/mcL (1.6-8.9); Platelet Count 567 K/mcL (140-400); Red Blood Count 4.24 M/mcL (4.19-5.50); Red Cell Distribution Width 12.8 % (11.5-14.5); Segmented Neutrophils % 73.3 %
[2016-03-30] MEDS ORDERED: 0.9 % Sodium Chloride 500 ML IVC ONE (08:50)
[2016-03-30] MEDS ORDERED: Metoprolol XL (24 HR) Succ 50 MG TAB.ER.24H PO SCH (09:00)
[2016-03-30] MEDS: Aspirin Enteric Coated 81 MG Tablet PO SCH (09:30)
[2016-03-30] MEDS: Gabapentin 300 MG CAPSULE PO SCH (09:30)
[2016-03-30] MEDS: Insulin DETEMIR 100 UNIT/ML X5UNITS SQ SCH (09:31)
[2016-03-30] MEDS: Insulin LISPRO 300 UNITS/3 ML VIAL SQ SCH ×2 (09:33→11:48)
[2016-03-30] MEDS ORDERED: Sennosides 8.6 MG TABLET PO PRN (10:53)
--- NOTE | 2016-03-30 12:51 | Physician Discharge Referral ---
Home Health/Hosp Referral Info Transfer to: Home Health Attending Provider: Brant Archer Provider in Charge Post Discharge: PCP - Diagnosis (1) Sepsis Priority: Primary Status: Acute (2) Cellulitis of right lower extremity Priority: Primary Status: Acute (3) Diabetes Priority: Secondary Status: Chronic (4) GERD (gastroesophageal reflux disease) Priority: Secondary Status: Chronic (5) HLD (hyperlipidemia) Priority: Secondary Status: Chronic (6) HTN (hypertension) Priority: Secondary Status: Chronic (7) Morbid obesity with BMI of 40.0-44.9, adult Priority: Secondary Status: Chronic - Respiratory Orders Smoking Cessation: Smoking cessation has been advised. For more information, call the [employer] Tobacco Quit Line at 3-260-KSJR-NOW. - Dressing/Wound Care Site: Right lower extremity Type of Dressing/Treatments w/Frequency: Continue daily wound packing- 1/2 inch plain gauze, cover with ABD pad and wrap with Kerlex, tape to secure daily - Diet/Nutrition Diet/Nutrition Orders: Cardiac, No Concentrated Sweets - Activity Activity Orders: Up ad ric, Ambulate - Services Needed Following services are medically necessary services: Nursing (Wound care) - Transfer Medications Home Medications: Canagliflozin [Invokana] 300 mg PO DAILY 09/25/15 [History] Metformin [Glucophage] 1,000 mg PO BID 09/25/15 [History] SitaGLIPtin [Januvia] 50 mg PO DAILY 09/25/15 [History] Gabapentin [Neurontin] 600 mg PO TID 03/17/16 [History] Insulin Glargine [Lantus] 55 unit SQ BID 03/17/16 [History] Insulin LISPRO [Humalog] 50 unit SQ TIDWM 03/17/16 [History] Lisinopril [Zestril] 40 mg PO DAILY 03/17/16 [History] Ropinirole HCl [Requip] 1 mg PO HS 03/17/16 [History] Albuterol Sulfate [Albuterol Inhaler] 1 - 2 puff IH Q6H PRN 03/26/16 [History] Aspirin [Lo-Dose Aspirin EC] 81 mg PO DAILY 03/26/16 [History] Atorvastatin [Lipitor] 10 mg PO HS 03/26/16 [History] Duloxetine HCl [Cymbalta] 60 mg PO DAILY 03/26/16 [History] Fluticasone/Salmeterol [Advair 250-50 Diskus] 2 puff IH BID 03/26/16 [History] Metoprolol XL (24 HR) Succ [Toprol XL] 50 mg PO DAILY 03/26/16 [History] Allergies/Adverse Reactions: Allergies No Known Allergies Allergy (Verified 03/25/16 17:50) Certification: Further, I certify that my clinical findings support that this patient is homebound (i.e. absences from home require considerable and taxing effort and are for medical reasons or jehovah's witness services or infrequently or short duration when for other reasons) because: Homebound Reason: Patient requires assistance of a person or device to safely leave home Attestation: My signature below is to certify that this patient is under my care and that I, or nurse practitioner, or a physician's business banking sales assistant working with me, has a face-to -face encounter with this patient.
--- NOTE | 2016-03-30 12:54 | Discharge Summary ---
Date of Encounter: 03/30/16 Time of Encounter: 12:15 - Discharge Diagnosis (1) Sepsis Priority: Primary Status: Acute Qualifiers: Sepsis type: sepsis due to unspecified organism Qualified Code(s): A41.9 - Sepsis, unspecified organism (2) Cellulitis of right lower extremity Priority: Primary Status: Acute (3) Diabetes Priority: Secondary Status: Chronic Qualifiers: Diabetes mellitus type: type 2 Diabetes mellitus complication status: with neurologic complications Diabetes mellitus complication detail: with unspecified neuropathy Diabetes mellitus oracle wms consultant insulin use: unspecified group home insulin use status Qualified Code(s): E11.40 - Type 2 diabetes mellitus with diabetic neuropathy, unspecified (4) GERD (gastroesophageal reflux disease) Priority: Secondary Status: Chronic Qualifiers: Esophagitis presence: esophagitis presence not specified Qualified Code(s) : K21.9 - Gastro-esophageal reflux disease without esophagitis (5) HLD (hyperlipidemia) Priority: Secondary Status: Chronic Qualifiers: Hyperlipidemia type: unspecified Qualified Code(s): E78.5 - Hyperlipidemia , unspecified (6) HTN (hypertension) Priority: Secondary Status: Chronic Qualifiers: Hypertension type: essential hypertension Qualified Code(s): I10 - Essential (primary) hypertension (7) Morbid obesity with BMI of 40.0-44.9, adult Priority: Secondary Status: Chronic - Discharge Medications Prescriptions: Acetaminophen [Tylenol] 650 mg PO Q6HR PRN #20 tablet PRN Reason: Mild Pain (1-3) Amoxicillin/Clavulanate [Augmentin] 875 mg PO BIDWM #12 tablet Home Medications: Canagliflozin [Invokana] 300 mg PO DAILY 09/25/15 [History] Metformin [Glucophage] 1,000 mg PO BID 09/25/15 [History] Gabapentin [Neurontin] 600 mg PO TID 03/17/16 [History] Insulin Glargine [Lantus] 55 unit SQ BID 03/17/16 [History] Insulin LISPRO [Humalog] 50 unit SQ TIDWM 03/17/16 [History] Lisinopril [Zestril] 40 mg PO DAILY 03/17/16 [History] Ropinirole HCl [Requip] 1 mg PO HS 03/17/16 [History] Albuterol Sulfate [Albuterol Inhaler] 1 - 2 puff IH Q6H PRN 03/26/16 [History] Aspirin [Lo-Dose Aspirin EC] 81 mg PO DAILY 03/26/16 [History] Atorvastatin [Lipitor] 10 mg PO HS 03/26/16 [History] Duloxetine HCl [Cymbalta] 60 mg PO DAILY 03/26/16 [History] Fluticasone/Salmeterol [Advair 250-50 Diskus] 2 puff IH BID 03/26/16 [History] Metoprolol XL (24 HR) Succ [Toprol Xl] 50 mg PO DAILY 03/26/16 [History] Acetaminophen [Tylenol] 650 mg PO Q6HR PRN #20 tablet 03/30/16 [Rx] Amoxicillin/Clavulanate [Augmentin] 875 mg PO BIDWM #12 tablet 03/30/16 [Rx] SitaGLIPtin [Januvia] 100 mg PO DAILY #30 tab 03/30/16 [Rx] Allergies/Adverse Reactions: Allergies No Known Allergies Allergy (Verified 03/25/16 17:50) Date of admission: 03/26/16 03:05 Primary care physician: Dexter Cline DO Consults: 03/26/16 14:14 Consult to Surgery [CONS] Stat Consulting Provider: [facility] Reason for Consult: Right lower extremity with abscess collection Call Completed: Yes 03/29/16 14:31 Consult to Swing Manager [CONS] Routine Reason for SW Consult: Wound care at home Discharging clinician: Brant Archer Anticipated date of discharge: 03/30/16 - Patient Status Disposition: Home Health Service Condition: Fair Functional capacity at discharge: independent ambulation Overall status at discharge: patient is back to baseline - Discharge Instructions Follow Up With: Juan Manuel MD [Partnered Physician] - 04/07/16 8:30 am (This appointment will be in Wound Care Clinic. ) Dexter Cline DO [Primary Care Provider] - 04/01/16 10:30 am Additional Instructions: Wound care- cleanse with soap and water, pack with 1/2 inch plain packing, cover with ABD pad, wrap with kerlex and tape to secure daily May shower - Diet and Activity Activity: resume usual activities as tolerated Diet: diabetic diet, low fat, low cholesterol, low salt diet Interval History: See below Hospital course: Mr. Kaur is a 55 year old male PMH of Uncontrolled DM A1C 9.2, HTN, HLD, GERD, Morbid Obesity He was admitted with a diagnosis of sepsis secondary to RLE cellulitis with abscess Patient had presented with with fever, tachycardia, leukocytosis and RLE cellulitis Tachycardia has improved, Tmax 101.5 at 03/26/16, afebrile since then. s/p I and D of RLE abscess by surgery with improvement in vital signs Blood and sputum cultures were negative Wound culture with Strep. agalactie-drug of choice is penicillin Has had received 2 days of IV Vancomycin and Zosyn and 3 days of Unasyn He had persistent leukocytosis, which is improved today Patient seemed to have poor insight to his DM management, he is again educated about need for complaince I believe he has right foot calluses with cracks which may have been the entry point of his cellulitis I have increased his Januvia to 100mg daily po His other meds have been continued at same doses He will be discharged to complete 6 more days of oral antibiotics-Augmentin HERIBERTO has been consulted for home wound care for his RLE wound He has an appointment with his PCP 04/01, advised to keep He has an appointment with surgery 04/07, advised to keep He has received Flu vaccine prior to this admission Patient had been educated to have annual podiatry and ophthalmology follow ups - Time Spent with Patient Total time spent providing and/or coordinating discharge services: Greater than 30 minutes (40 minutes spent face to face encountr, documentation, consulting with HERIBERTO and presciptions sending) - Constitutional Vitals: Temp Pulse Resp BP Pulse Ox 98.6 F 87 16 157/88 95 03/30/16 11:13 03/30/16 11:13 03/30/16 11:13 03/30/16 11:13 03/30/16 11:13 General appearance: Present: A&O X 3, morbidly obese, pleasant, no acute distress, answers questions appropriately - Head Head exam: Present: atraumatic, normocephalic - Eye Eye exam: Present: PERRL, conjuntiva pink, sclera anicteric Pupils: Present: PERRL - Neck Neck exam general surgery: Present: supple, trachea midline. Absent: lymphadenopathy - Respiratory Respiratory exam: Present: CTAB. Absent: accessory muscle use, rales, rhonchi, wheezes - Cardiovascular Cardiovascular exam: Present: RRR, +S1, +S2. Absent: diastolic murmur, gallop, rubs, systolic murmur - GI/Abdominal GI/Abdominal exam: Present: normal bowel sounds, soft, no peritoneal signs. Absent: distended, tenderness - Extremities Exam Additional comments: Right calf wound dressing slightly soaked markedly improved swelling and redness of right lower extremity - Neurological Exam Neurological exam: Present: CN II-XII intact, oriented X3, no focal deficits. Absent: pronater drift, facial droop, speech deficit - Skin Skin exam: Present: dry
[2016-03-30] MEDS ORDERED: Sennosides/Docusate Sodium TABLET PO ONE (12:58)
[2016-03-30 15:36] VITALS: BP 156/96
--- NOTE | 2016-03-30 16:56 | General Surgery Progress Note ---
Date of Encounter: 03/30/16 Time of Encounter: 08:00 - Assessment and Plan (1) Cellulitis of right lower extremity Current Visit: Yes Status: Acute Continue daily wound packing- 1/2 inch plain gauze, cover with ABD pad and wrap with kerlex, tape to secure daily Received 2 days of IV Vancomycin and Zosyn Currently receiving IV Unasyn (day 3) Supportive care and pain control F/U in wound care center 04/[address] Manuel Subjective Patient reports: no new complaints, feels better, still having pain, pain is less, tolerating a regular diet, afebrile Objective Vital Signs - Last 8 Hours Temp Pulse Resp BP Pulse Ox 03/30/16 15:35 98.6 F 81 16 156/96 94 L 03/30/16 11:13 98.6 F 87 16 157/88 95 03/30/16 10:25 165/95 Intake and Output 03/30/16 03/30/16 03/30/16 07:59 15:59 23:59 Intake Total 700 / 700 480 / 480 Output Total 550 / 550 Balance 150 / 150 480 / 480 Intake: IV Fluids 100 / 100 Unasyn 3,000 MG In 0.9 % 100 / 100 Sodium Chloride (Mini-Bag +) 100 ML @ 200 mls/hr IVPB Q6H [facility] Rx#: [id number] Oral 600 / 600 480 / 480 Output: Urine 550 / 550 Other: Meal Lunch Percent of Meal Consumed 50% # Voids 1 Weight 145.6 kg Blood Glucose* 206 Patient Weight 03/30/16 23:59 Weight 145.6 kg - General physical appearance well developed, well nourished, no distress, obese - Eyes normal ocular movement - ENT normal mucosa, atraumatic, normocephalic - Neck Neck exam: trachea midline - Respiratory normal respiratory effort - Incision Incision: Present: erythema (improving), serosanguinous (small amount), open ( RLE) - Neurologic CN 2-12 grossly intact - Psychiatric oriented to time, oriented to person, oriented to place, speech is normal, memory intact - Labs 03/30/16 07:11 03/29/16 04:20 Consult Discharge Plan - Plan Instructions: Amoxicillin/Clavulanate Potassium (By mouth), Cellulitis (GEN), Sepsis (GEN) Additional Instructions: Wound care- cleanse with soap and water, pack with 1/2 inch plain packing, cover with ABD pad, wrap with kerlex and tape to secure daily May shower Referrals: Juan Manuel MD [Partnered Physician] - 04/07/16 8:30 am (This appointment will be in Wound Care Clinic. ) Dexter Cline DO [Primary Care Provider] - 04/01/16 10:30 am Prescriptions: Acetaminophen [Tylenol] 650 mg PO Q6HR PRN #20 tablet PRN Reason: Mild Pain (1-3) Amoxicillin/Clavulanate [Augmentin] 875 mg PO BIDWM #12 tablet
[2016-03-30] MEDS ORDERED: Aminoglycoside Consult 1 EACH MC ONE (17:44)
== END 2016-03-30 17:45 | disposition home health service (06) | DRG 872 ==
LOC: EMEROO 17:18 → 3BNU 17:18 → SUATTDRO 03-26 03:05
PROVIDERS: ADMIT Hospitalist; ATTEND Internal Medicine

== ENCOUNTER 2016-06-13 22:23 | Observation (INO) ==
[2016-06-13] MEDS ORDERED: Vancomycin 1,000 MG VIAL IVPB ONE (22:46)
[2016-06-13] MEDS ORDERED: 0.9 % Sodium Chloride 1,000 ML IVC ONE (22:46)
--- NOTE | 2016-06-13 23:00 | Emergency Department Note ---
Disposition Clinical Impression: Cellulitis Qualifiers: Site of cellulitis: extremity Site of cellulitis of extremity: lower extremity Laterality: right Qualified Code(s): L03.115 - Cellulitis of right lower limb Disposition: Admitted As Inpatient Condition: Good Referrals: Dexter Cline DO [Primary Care Provider] - Forms: ED Satisfaction Letter Time of Disposition: 00:19 Skin/Abscess/FB HPI Chief complaint: ED Skin/Abscess/Foreign Body Stated complaint: RLE abscess Time Seen by Provider: 06/13/16 22:58 Source: patient Limitations: no limitations Nursing Notes Reviewed: Yes Vital Signs Reviewed: Yes HPI Narrative: 55 year old male with HX of diabetes and recent hospital admission for 5 days wiht IV ABX for RLE cellulitis/absecess. Dion states he has been following with wound clinic and they it was improving until two days ago with it began to weep again and then started to notice streaking up his RLE and towards his foot. He was concerned that it ws infected again. No green or white drainage but more serous. He denies fevers, nasuea, or vomitting, pain on walking, or any history of DVTS. during his hospial stay he was anticoagulated with loveox for DVT propylaxis. Home Medications Medication Instructions Recorded Confirmed Canagliflozin [Invokana] 300 mg PO DAILY 09/25/15 03/26/16 Metformin [Glucophage] 1,000 mg PO BID 09/25/15 03/26/16 Gabapentin [Neurontin] 600 mg PO TID 03/17/16 03/26/16 Insulin Glargine [Lantus] 55 unit SQ BID 03/17/16 03/26/16 Insulin LISPRO [Humalog] 50 unit SQ TIDWM 03/17/16 03/26/16 Lisinopril [Zestril] 40 mg PO DAILY 03/17/16 03/26/16 Ropinirole HCl [Requip] 1 mg PO HS 03/17/16 03/26/16 Albuterol Sulfate [Albuterol 1 - 2 puff IH Q6H PRN 03/26/16 03/26/16 Inhaler] Aspirin [Lo-Dose Aspirin EC] 81 mg PO DAILY 03/26/16 03/26/16 Atorvastatin [Lipitor] 10 mg PO HS 03/26/16 03/26/16 Duloxetine HCl [Cymbalta] 60 mg PO DAILY 03/26/16 03/26/16 Fluticasone/Salmeterol [Advair 2 puff IH BID 03/26/16 03/26/16 250-50 Diskus] Metoprolol XL (24 HR) Succ [Toprol 50 mg PO DAILY 03/26/16 03/26/16 Xl] Previous Rx's Medication Instructions Recorded Acetaminophen [Tylenol] 650 mg PO Q6HR PRN #20 tablet 03/30/16 Amoxicillin/Clavulanate [Augmentin] 875 mg PO BIDWM #12 tablet 03/30/16 SitaGLIPtin [Januvia] 100 mg PO DAILY #30 tab 03/30/16 Sulfamethoxazole/Trimeth DS 1 each PO BID #14 tablet 04/12/16 [Bactrim DS] Allergies Allergy/AdvReac Type Severity Reaction Status Date / Time No Known Allergies Allergy Verified 04/12/16 20:08 Musculoskeletal: Reports: other (RLE pain and infection) Integumentary: Reports: as per HPI Past Medical History - Past Medical History Medical history: Reports: diabetes, hypertension Surgical history: Reports: other Psychiatric history: Reports: depression - Social History Smoking Status: Never smoker Smokeless Tobacco Status: No Alcohol use: Reports: none Drug use: Reports: none Physical Exam - General Limitations: no limitations General appearance: alert, in no apparent distress - Head Head exam: atraumatic, normocephalic, normal inspection - Eye Eye exam: Present: normal appearance, PERRL, EOMI - Expanded Eye Exam Pupils: Left: reactive - ENT ENT exam: normal exam, normal oropharynx, mucous membranes moist - Expanded ENT Exam External ear exam: Present: normal external inspection Mouth exam: Present: normal external inspection Teeth exam: Present: normal inspection Throat exam: Present: normal inspection - Neck Neck exam: Present: normal inspection, full ROM, trachea midline - Chest Chest inspection: Present: normal inspection, symmetric chest wall rise - Respiratory Respiratory exam: Present: normal lung sounds bilaterally - Cardiovascular Cardiovascular exam: Present: regular rate, normal rhythm, normal heart sounds - Abdominal Exam Abdominal exam: Present: soft, Non-Tender. Absent: tenderness, distention, guarding, rebound, rigidity - Extremities Exam Extremities exam: Present: normal inspection, full ROM. Absent: tenderness, pedal edema - Expanded Upper Extremity Exam Shoulder exam: Present: normal inspection, full ROM Arm exam: Present: normal inspection, full ROM Elbow exam: Present: normal inspection, full ROM Forearm/Wrist exam: Present: normal inspection, full ROM Hand exam: Present: normal inspection, full ROM Vascular exam: Normal: capillary refill, radial pulse - Expanded Lower Extremity Exam Hip/Pelvis exam: Present: normal inspection, full ROM Upper leg exam: Present: normal inspection, full ROM 1 - celluitic change with induration located on the medial right lower leg with increased serous drainage. good pulses DP/PT. No calf pain. (-) Basilia's sign Knee exam: Present: normal inspection, full ROM Lower leg exam: Present: normal inspection, full ROM Ankle exam: Present: normal inspection, full ROM Foot/toe exam: Present: normal inspection, full ROM Neurovascular/Tendon exam: Absent: motor deficit, sensory deficit, tendon deficit - Back Exam Back exam: Present: normal inspection, full ROM. Absent: tenderness - Neurological Exam Neurological exam: Present: alert, oriented X3 - Expanded Neurological Exam Patient oriented to: Present: person, place, time Coma Scale Eye Opening: Spontaneous Coma Scale Motor Response: Obeys Commands Coma Scale Verbal Response: Oriented Coma Scale Total: 15 - Psychiatric Psychiatric exam: Present: normal affect, normal mood - Skin Skin exam: Present: warm, dry, intact, normal color Course Course Narrative: we will do bloodwork and start antibiotic therappy at this time. Likely admit to medicine. - Consultations Consultation #1: discussed case with Dr. Barkley and he accepts patient to his service. Time: 00:19 Vital Signs Temperature 97.9 F 06/13/16 22:26 Pulse Rate 106 06/13/16 22:26 Respiratory Rate 16 06/13/16 22:26 Blood Pressure 176/80 06/13/16 22:26 O2 Sat by Pulse Oximetry 97 06/13/16 22:26 Temperature 97.9 F 06/13/16 22:26 Pulse Rate 94 06/14/16 00:26 Respiratory Rate 16 06/14/16 00:26 Blood Pressure 132/88 06/14/16 00:26 O2 Sat by Pulse Oximetry 94 06/14/16 00:26 Oxygen Delivery Oxygen Delivery Room Air Skin/Abscess/Foreign Body - Lab Data Lab results reviewed: Yes I reviewed the patient's lab results. Result diagrams: 06/13/16 23:08 06/13/16 23:08 Lab Results 06/13/16 06/13/16 06/13/16 Range/Units 23:08 23:08 23:08 WBC 10.2 (4.3-11.1) K/mcL RBC 4.84 (4.19-5.50) M/mcL Hgb 13.9 (12.9-16.9) g/dL Hct 43.4 (37.5-50.1) % MCV 89.7 (83.0-100.0) fL MCH 28.7 (28.0-33.3) pg MCHC 32.0 (31.6-35.5) g/dL RDW 13.6 (11.5-14.5) % Plt Count 427 H (140-400) K/mcL MPV 9.3 L (9.4-12.4) fL Immature Gran % 0.8 (0-4) % Seg Neutrophils % 60.0 % Lymphocytes % 24.6 % Monocytes % 8.9 % Eosinophils % 5.0 % Basophils % 0.7 % Neutrophils # 6.1 (1.6-8.9) K/mcL Lymphocytes # 2.5 (0.6-4.6) K/mcL Monocytes # 0.9 (0.0-1.3) K/mcL Eosinophils # 0.5 (0.0-0.6) K/mcL Basophils # 0.1 (0.0-0.2) K/mcL Sodium 138 (136-145) mEq/L Potassium 4.3 (3.5-4.5) mEq/L Chloride 101 (98-109) mEq/L Carbon Dioxide 26 (19-29) mEq/L BUN 18 (8-26) mg/dL Creatinine 1.14 (0.72-1.25) mg/dL Est GFR ( Amer) > 60 (> 60) Est GFR (Non-Af Amer) > 60 (> 60) BUN/Creatinine Ratio 16 (6-26) Glucose 128 H (70-99) mg/dL Calculated Osmolality 290 (280-300) Lactic Acid 1.2 (0.5-2.2) mmol/L Calcium 9.3 (8.6-10.8) mg/dL Attestation Statement - Attestation Attestation: I, Chris Roach MD, personally evaluated this patient and discussed their management with the resident physician. I reviewed the resident's note and agree with the documented findings, medical decision making, and plan of care. 55-year-old male patient presents with a complaint of cellulitis of the right lower leg. Patient is diabetic and has a history of cellulitis in the right lower leg requiring hospitalization admission and IV antibiotics few months ago. He states that it was much improved and yesterday symptoms began to get worse. He noticed increased pain and redness. Symptoms much worse today. He denies any fever. On examination patient is a well-developed obese male in no acute distress. He is alert and oriented 3. There is no cyanosis or diaphoresis. Breath sounds are clear and equal bilaterally. Heart regular rate and rhythm. Abdomen soft and nontender with normal bowel sounds. There is an area of erythema with induration and warmth to touch over the distal posterior aspect of the right lower extremity. One small open area with just some serosanguineous drainage. Neurovascular function intact distally. Labs reviewed. Hospitalist, Dr. Camacho, was consulted and accepted admission of the patient.
[2016-06-13 23:15] LABS: Basophils # 0.1 K/mcL (0.0-0.2); Basophils % 0.7 %; Eosinophils # 0.5 K/mcL (0.0-0.6); Hematocrit 43.4 % (37.5-50.1); Hemoglobin 13.9 g/dL (12.9-16.9); Immature Granulocytes % 0.8 % (0-4); Lymphocytes # 2.5 K/mcL (0.6-4.6); Lymphocytes % 24.6 %; Mean Corpuscular Hemoglobin 28.7 pg (28.0-33.3); Mean Corpuscular Volume 89.7 fL (83.0-100.0); Mean Platelet Volume 9.3 fL (9.4-12.4); Monocytes # 0.9 K/mcL (0.0-1.3); Monocytes % 8.9 %; Neutrophils # 6.1 K/mcL (1.6-8.9); Platelet Count 427 K/mcL (140-400); Red Blood Count 4.84 M/mcL (4.19-5.50); Red Cell Distribution Width 13.6 % (11.5-14.5)
[2016-06-13 23:28] LABS: BUN/Creatinine Ratio 16 (6-26); Blood Urea Nitrogen 18 mg/dL (8-26); Calcium 9.3 mg/dL (8.6-10.8); Carbon Dioxide 26 mEq/L (19-29); Chloride 101 mEq/L (98-109); Glucose 128 mg/dL (70-99); Osmolality,Calculated 290 (280-300); Potassium 4.3 mEq/L (3.5-4.5); Sodium 138 mEq/L (136-145); eGFR For African Americans > 60 (> 60); eGFR For Non-African Americans > 60 (> 60)
[2016-06-13] MEDS ORDERED: D5% in Water 250 ML ONE (23:39)
[2016-06-13] MEDS ORDERED: rOPINIRole 1 MG TABLET PO SCH (23:45)
--- NOTE | 2016-06-14 01:39 | Internal Med History&Physical ---
Date of Encounter: 06/14/16 Time of Encounter: 01:20 Assessment and Plan (1) Cellulitis of right lower extremity Current visit: Yes Status: Acute patient has poorly controlled DM type 2 for which he is on insulin, he has also had recurrent inflammation of the right lower extremity for which he follows up at the wound center, he comes in with signs and symptoms of cellulitis and he is being admitted for IV Abx, we will also do pain management and DVT prophylaxis, we will elevate affected extremity (2) Diabetes Current visit: Yes Status: Chronic poorly controlled with recent A1c of 9.2% in 03/2016 on roasterman insulin, we will continue his home regimen, FS ACHS, with low dose SSI for coverage Qualifiers: Diabetes mellitus type: type 2 Diabetes mellitus complication status: with neurologic complications Diabetes mellitus complication detail: with polyneuropathy Diabetes mellitus shelter insulin use: with roasterman use Qualified Code(s): E11.42 - Type 2 diabetes mellitus with diabetic polyneuropathy; Z79.4 - manager terminal (current) use of insulin (3) HTN (hypertension) Current visit: Yes Status: Chronic Hx of HTN on lisinopril and metoprolol, we will continue home medications with BP monitoring Qualifiers: Hypertension type: essential hypertension Qualified Code(s): I10 - Essential (primary) hypertension (4) Morbid obesity with BMI of 40.0-44.9, adult Current visit: Yes Status: Chronic will need counseling on lifestyle modification (5) GERD (gastroesophageal reflux disease) Current visit: Yes Status: Chronic not on PPI at home, we will monitor symptoms Qualifiers: Esophagitis presence: without esophagitis Qualified Code(s): K21.9 - Gastro -esophageal reflux disease without esophagitis Internal Medicine - H&P: HPI Chief complaint: right lower extremity swelling Admitted From: Emergency Dept Plans for Post Hospital Care: Home History of present illness: Mr. Kaur is a 55 year old male with a history of poorly controlled type 2 DM who comes in with right lower extremity swelling, pain and drainage. He was reportedly well until 2 days prior when he noticed that the back of his right lower extremity was painful, upon looking he noticed that it was red and slightly swollen. He kept monitoring it. Yesterday whilst he was pulling his socks off he noticed that the swelling was worse, was painful especially to touch, and was discharging. This alarmed him to come to the ER of [facility]. Of note he has had similar presentations in the past requiring incision and drainage. He has been following with the wound clinic for the same leg and things were improving until now. He denies fever, chills, nausea or vomiting, no loss of appetite, no trauma to the leg. Past Med Surg Social Fam HX - Past Medical History Source: patient, old records reviewed Medical history: diabetes, hyperlipidemia, hypertension, other (restless leg syndrome, peripheral neuropathy) Psychiatric history: depression - Past Surgical History Surgical History: other (I and D) - Social History Smoking Status: Never smoker Smokeless Tobacco Status: No Alcohol use: none Drug use: none Current living situation: Home - Independent, With Family Activity Level: Independent ambulation Additional social history: he is and lives with his - Family History Father Hx Family Endocrine Disorder: Yes (DM) Mother Adopted: No Family Member Ethnicity: Non- Living Status: Hx Family Cardiac Disorders: Yes (blockages, stints,) Hx Family Respiratory Disorders: Yes (COPD) Hx Family Cancer: No Hx Family GI Disorders: No Hx Family Endocrine Disorder: No Hx Family Neuromuscular Disorders: No Hx Family Neurologic Disorders: No Hx Family HEENT Disorders: No Internal Medicine - H&P: Meds Metformin [Glucophage] 1,000 mg PO BID 09/25/15 [History] Gabapentin [Neurontin] 600 mg PO TID 03/17/16 [History] Insulin Glargine [Lantus] 55 unit SQ BID 03/17/16 [History] Insulin LISPRO [Humalog] 50 unit SQ TIDWM 03/17/16 [History] Lisinopril [Zestril] 40 mg PO DAILY 03/17/16 [History] Ropinirole HCl [Requip] 1 mg PO HS 03/17/16 [History] Albuterol Sulfate [Albuterol Inhaler] 1 - 2 puff IH Q6H PRN 03/26/16 [History] Aspirin [Lo-Dose Aspirin EC] 81 mg PO DAILY 03/26/16 [History] Atorvastatin [Lipitor] 10 mg PO HS 03/26/16 [History] Duloxetine HCl [Cymbalta] 60 mg PO DAILY 03/26/16 [History] Fluticasone/Salmeterol [Advair 250-50 Diskus] 2 puff IH BID 03/26/16 [History] Metoprolol XL (24 HR) Succ [Toprol Xl] 50 mg PO DAILY 03/26/16 [History] Acetaminophen [Tylenol] 650 mg PO Q6HR PRN #20 tablet 03/30/16 [Rx] SitaGLIPtin [Januvia] 100 mg PO DAILY #30 tab 03/30/16 [Rx] Empagliflozin [Jardiance] 25 mg PO 06/14/16 [History] Allergies No Known Allergies Allergy (Verified 04/12/16 20:08) All Systems PM: A 10-system review of systems was performed and is negative for pertinent findings except as documented above in the HPI. - Constitutional Vitals: Temp Pulse Resp BP Pulse Ox 98.2 F 99 15 155/92 97 06/14/16 01:35 06/14/16 01:35 06/14/16 01:35 06/14/16 01:35 06/14/16 01:35 PHYSICAL EXAMINATION: GENERAL: Adult male, lying in bed with no sign of distress, Alert, obese looking HEENT: NC/AT, EOMI, PERRLA, anicteric sclera, normal conjunctiva, supple, clear nares, moist mucous membranes, clear oropharynx, central uvula RESP: no chest wall tenderness with palpation, lungs are clear to auscultation bilaterally, good AE bilaterally, No crackles or wheeze CARDIO: Normal hearts sounds; S1 and 2, RRR with no murmurs, no JVD, no ankle edema GI: Soft, full, no tenderness, no organomegaly felt, normal bowel sounds heard MUSCULOSKELETAL: grossly normal movements bilaterally, no deformities noted, no calf tenderness EXTREMITIES: No clubbing, cyanosis or edema, refer to skin section for more detail NEUROLOGIC: CN 2-12 intact grossly. No motor/sensory deficit appreciated, PSYCHIATRY: AAO x 3. Mood is fair, SKIN: stasis dermatitis lesions on the bilateral shins, he has inflamed area behind the right leg with an ulcer measuring about 0.5cm that has a discharge, the area is tender and red Internal Med - H&P Results - Labs CBC & Chem 7: 06/13/16 23:08 06/13/16 23:08
[2016-06-14] MEDS ORDERED: Naloxone 0.4 MG/ML INJ IVP PRN (01:40)
[2016-06-14] MEDS ORDERED: *HR* Dextrose 50 % in Water (Syg) 50 ML SYRINGE IVP PRN (01:41)
[2016-06-14] MEDS ORDERED: D5% in Water 1,000 ML IVC PRN (01:41)
[2016-06-14] MEDS ORDERED: Dextrose Gel 15 GM PO PRN ×2 (01:41)
[2016-06-14] MEDS ORDERED: rOPINIRole 1 MG TABLET PO SCH (01:45)
[2016-06-14] MEDS ORDERED: Insulin LISPRO 300 UNITS/3 ML VIAL SQ SCH ×2 (01:45)
[2016-06-14] MEDS ORDERED: Vancomycin 1,000 MG in D5% in Water 250 ML IVPB ONE (02:20)
[2016-06-14] MEDS: Insulin DETEMIR 100 UNIT/ML X5UNITS SQ SCH ×2 (02:33→21:12)
[2016-06-14] MEDS: Ibuprofen 400 MG TABLET PO PRN ×2 (02:47→20:57)
[2016-06-14 04:11] LABS: Basophils # 0.1 K/mcL (0.0-0.2); Basophils % 0.9 %; Eosinophils # 0.7 K/mcL (0.0-0.6); Eosinophils % 7.5 %; Hematocrit 39.3 % (37.5-50.1); Hemoglobin 12.8 g/dL (12.9-16.9); Immature Granulocytes % 1.3 % (0-4); Immature Platelets 3.1 % (1.1-6.1); Lymphocytes # 2.6 K/mcL (0.6-4.6); Lymphocytes % 27.7 %; Mean Corpuscular HGB Conc 32.6 g/dL (31.6-35.5); Mean Corpuscular Volume 89.1 fL (83.0-100.0); Mean Platelet Volume 9.9 fL (9.4-12.4); Monocytes % 10.5 %; Neutrophils # 4.9 K/mcL (1.6-8.9); Platelet Count 400 K/mcL (140-400); Red Blood Count 4.41 M/mcL (4.19-5.50); Red Cell Distribution Width 13.7 % (11.5-14.5); Segmented Neutrophils % 52.1 %
[2016-06-14 04:26] LABS: BUN/Creatinine Ratio 21 (6-26); Blood Urea Nitrogen 18 mg/dL (8-26); Calcium 8.3 mg/dL (8.6-10.8); Carbon Dioxide 25 mEq/L (19-29); Chloride 104 mEq/L (98-109); Glucose 116 mg/dL (70-99); Magnesium 2.1 mg/dL (1.6-2.6); Osmolality,Calculated 287 (280-300); Phosphorous 4.6 mg/dL (2.3-4.7); Potassium 3.8 mEq/L (3.5-4.5); Sodium 137 mEq/L (136-145); eGFR For African Americans > 60 (> 60); eGFR For Non-African Americans > 60 (> 60)
[2016-06-14] MEDS: *HR* Heparin 5,000 UNIT/ML VIAL SQ SCH ×3 (06:28→20:46)
[2016-06-14] MEDS: Insulin LISPRO 300 UNITS/3 ML VIAL SQ SCH ×4 (07:25→20:37)
[2016-06-14] MEDS: Piperacillin/Tazobactam 3.375 GM in D5% in Water (Mini-Bag+) 100 ML IVPB SCH ×2 (07:26→15:53)
[2016-06-14] MEDS: Aspirin Enteric Coated 81 MG Tablet PO SCH (07:27)
[2016-06-14] MEDS: *HR* SitaGLIPtin 100 MG TABLET PO SCH (07:28)
[2016-06-14] MEDS: *HR* Metformin 500 MG TABLET PO SCH ×2 (07:28→20:47)
[2016-06-14] MEDS: Lisinopril 20 MG TABLET PO SCH (07:29)
[2016-06-14] MEDS: Gabapentin 300 MG CAPSULE PO SCH ×3 (07:29→20:46)
[2016-06-14] MEDS: Metoprolol XL (24 HR) Succ 50 MG TAB.ER.24H PO SCH (07:29)
--- NOTE | 2016-06-14 09:48 | Event Note ---
Date of Encounter: 06/14/16 Time of Encounter: 09:45 Patient with history of hypertension, morbid obesity, high cholesterol, restless leg syndrome, peripheral neuropathy, patient was admitted due to right lower extremity swelling and redness shows acute cellulitis started on vancomycin and Zosyn. some improvement patient said he had similar problem back in March and treated . clinicallt stable
[2016-06-14] MEDS: Vancomycin 2,000 MG in D5% in Water 500 ML IVPB SCH (13:46)
[2016-06-14] MEDS: rOPINIRole 1 MG TABLET PO SCH (20:46)
[2016-06-15] MEDS: Vancomycin 2,000 MG in D5% in Water 500 ML IVPB SCH (01:51)
[2016-06-15] MEDS: *HR* Heparin 5,000 UNIT/ML VIAL SQ SCH ×3 (04:45→21:37)
[2016-06-15] MEDS: Insulin LISPRO 300 UNITS/3 ML VIAL SQ SCH ×4 (07:30→21:18)
[2016-06-15] MEDS: Piperacillin/Tazobactam 3.375 GM in D5% in Water (Mini-Bag+) 100 ML IVPB SCH ×4 (07:36→23:29)
[2016-06-15] MEDS: Aspirin Enteric Coated 81 MG Tablet PO SCH (07:39)
[2016-06-15] MEDS: *HR* Metformin 500 MG TABLET PO SCH ×2 (07:40→21:36)
[2016-06-15] MEDS: Metoprolol XL (24 HR) Succ 50 MG TAB.ER.24H PO SCH (07:40)
[2016-06-15] MEDS: Gabapentin 300 MG CAPSULE PO SCH ×3 (07:40→21:36)
[2016-06-15] MEDS: Lisinopril 20 MG TABLET PO SCH (07:40)
[2016-06-15] MEDS: *HR* SitaGLIPtin 100 MG TABLET PO SCH (07:40)
[2016-06-15] MEDS ORDERED: Aminoglycoside Consult 1 EACH MC ONE (09:23)
--- NOTE | 2016-06-15 13:51 | Internal Med Progress Note ---
Date of Encounter: 06/15/16 Time of Encounter: 13:49 - Assessment and plan (1) Edema of right lower extremity Current Visit: No Status: Acute Assessment and plan: no dvt (2) Cellulitis of right lower extremity Current Visit: Yes Status: Acute Assessment and plan: clinically much improved continue c urrent treatment (3) Diabetes Current Visit: Yes Status: Chronic Assessment and plan: chronic continue sliding scale Qualifiers: Diabetes mellitus type: type 2 Diabetes mellitus complication status: with neurologic complications Diabetes mellitus complication detail: with polyneuropathy Diabetes mellitus terminal gauger insulin use: with terminal gauger use Qualified Code(s): E11.42 - Type 2 diabetes mellitus with diabetic polyneuropathy; Z79.4 - predatory animal exterminator (current) use of insulin (4) HTN (hypertension) Current Visit: Yes Status: Chronic Assessment and plan: well controlled Qualifiers: Hypertension type: essential hypertension Qualified Code(s): I10 - Essential (primary) hypertension (5) HLD (hyperlipidemia) Current Visit: No Status: Chronic Assessment and plan: chronic Qualifiers: Hyperlipidemia type: unspecified Qualified Code(s): E78.5 - Hyperlipidemia , unspecified (6) Morbid obesity with BMI of 40.0-44.9, adult Current Visit: Yes Status: Chronic Assessment and plan: chronic - Subjective Interval history: patient seen and examined feels better cellulitis looks much better no fever or chills - Constitutional Vitals: Temp Pulse Resp BP Pulse Ox 97.8 F 75 16 126/80 95 06/15/16 11:31 06/15/16 11:31 06/15/16 11:31 06/15/16 11:31 06/15/16 11:31 - Eye Eye exam: Present: PERRL, conjuntiva pink, sclera anicteric Pupils: Present: PERRL - Neck Neck exam general surgery: Present: supple, trachea midline. Absent: lymphadenopathy - Respiratory Respiratory exam: Present: CTAB. Absent: accessory muscle use, rales, rhonchi, wheezes - Cardiovascular Cardiovascular exam: Present: RRR, +S1, +S2. Absent: diastolic murmur, gallop, rubs, systolic murmur - GI/Abdominal GI/Abdominal exam: Present: normal bowel sounds, soft, no peritoneal signs. Absent: distended, tenderness - Extremities Exam Extremities exam: Present: tenderness, warm Internal Medicine: Result - Labs CBC & Chem 7: 06/14/16 03:46 06/14/16 03:46 Consult Discharge Plan - Plan Referrals: Dexter Cline DO [Primary Care Provider] -
[2016-06-15] MEDS: rOPINIRole 1 MG TABLET PO SCH (21:35)
[2016-06-15] MEDS: Ibuprofen 400 MG TABLET PO PRN (21:36)
[2016-06-15] MEDS: Insulin DETEMIR 100 UNIT/ML X5UNITS SQ SCH (21:37)
[2016-06-16 04:48] LABS: Hematocrit 41.8 % (37.5-50.1); Hemoglobin 13.7 g/dL (12.9-16.9); Mean Corpuscular HGB Conc 32.8 g/dL (31.6-35.5); Mean Corpuscular Hemoglobin 29.1 pg (28.0-33.3); Mean Corpuscular Volume 88.9 fL (83.0-100.0); Mean Platelet Volume 9.5 fL (9.4-12.4); Platelet Count 363 K/mcL (140-400); Red Cell Distribution Width 13.4 % (11.5-14.5)
[2016-06-16 05:08] LABS: BUN/Creatinine Ratio 20 (6-26); Blood Urea Nitrogen 17 mg/dL (8-26); Calcium 8.6 mg/dL (8.6-10.8); Carbon Dioxide 24 mEq/L (19-29); Chloride 104 mEq/L (98-109); Glucose 110 mg/dL (70-99); Osmolality,Calculated 284 (280-300); Sodium 136 mEq/L (136-145); eGFR For African Americans > 60 (> 60); eGFR For Non-African Americans > 60 (> 60)
[2016-06-16] MEDS: *HR* Heparin 5,000 UNIT/ML VIAL SQ SCH (05:35)
[2016-06-16] MEDS: Insulin LISPRO 300 UNITS/3 ML VIAL SQ SCH ×2 (08:15→13:55)
[2016-06-16] MEDS: *HR* SitaGLIPtin 100 MG TABLET PO SCH (08:21)
[2016-06-16] MEDS: Aspirin Enteric Coated 81 MG Tablet PO SCH (08:21)
[2016-06-16] MEDS: *HR* Metformin 500 MG TABLET PO SCH (08:21)
[2016-06-16] MEDS: Metoprolol XL (24 HR) Succ 50 MG TAB.ER.24H PO SCH (08:21)
[2016-06-16] MEDS: Lisinopril 20 MG TABLET PO SCH (08:21)
[2016-06-16] MEDS: Piperacillin/Tazobactam 3.375 GM in D5% in Water (Mini-Bag+) 100 ML IVPB SCH (08:22)
[2016-06-16] MEDS: Gabapentin 300 MG CAPSULE PO SCH (08:22)
--- NOTE | 2016-06-16 11:58 | Discharge Summary ---
Date of Encounter: 06/16/16 Time of Encounter: 11:57 - Discharge Diagnosis (1) Cellulitis of right lower extremity Priority: Primary Status: Acute (2) Edema of right lower extremity Priority: Secondary Status: Acute (3) Diabetes Priority: Secondary Status: Chronic Qualifiers: Diabetes mellitus type: type 2 Diabetes mellitus complication status: with neurologic complications Diabetes mellitus complication detail: with polyneuropathy Diabetes mellitus long term care pharmacist insulin use: with fci use Qualified Code(s): E11.42 - Type 2 diabetes mellitus with diabetic polyneuropathy; Z79.4 - penitentiary (current) use of insulin (4) HTN (hypertension) Priority: Secondary Status: Chronic Qualifiers: Hypertension type: essential hypertension Qualified Code(s): I10 - Essential (primary) hypertension (5) HLD (hyperlipidemia) Priority: Secondary Status: Chronic Qualifiers: Hyperlipidemia type: unspecified Qualified Code(s): E78.5 - Hyperlipidemia , unspecified (6) Morbid obesity with BMI of 40.0-44.9, adult Priority: Secondary Status: Chronic - Discharge Medications Prescriptions: Amoxicillin/Clavulanate [Augmentin] 875 mg PO BIDWM #28 tablet Lactobacillus Acidophilus [Acidophilus] 1 each PO TID #45 capsule Home Medications: Metformin [Glucophage] 1,000 mg PO BID 09/25/15 [History] Gabapentin [Neurontin] 600 mg PO TID 03/17/16 [History] Insulin Glargine [Lantus] 55 unit SQ BID 03/17/16 [History] Insulin LISPRO [Humalog] 50 unit SQ TIDWM 03/17/16 [History] Lisinopril [Zestril] 40 mg PO DAILY 03/17/16 [History] Ropinirole HCl [Requip] 1 mg PO HS 03/17/16 [History] Albuterol Sulfate [Albuterol Inhaler] 1 - 2 puff IH Q6H PRN 03/26/16 [History] Aspirin [Lo-Dose Aspirin EC] 81 mg PO DAILY 03/26/16 [History] Atorvastatin [Lipitor] 10 mg PO HS 03/26/16 [History] Duloxetine HCl [Cymbalta] 60 mg PO DAILY 03/26/16 [History] Fluticasone/Salmeterol [Advair 250-50 Diskus] 2 puff IH BID 03/26/16 [History] Metoprolol XL (24 HR) Succ [Toprol Xl] 50 mg PO DAILY 03/26/16 [History] Acetaminophen [Tylenol] 650 mg PO Q6HR PRN #20 tablet 03/30/16 [Rx] SitaGLIPtin [Januvia] 100 mg PO DAILY #30 tab 03/30/16 [Rx] Empagliflozin [Jardiance] 25 mg PO DAILY 06/14/16 [History] Amoxicillin/Clavulanate [Augmentin] 875 mg PO BIDWM #28 tablet 06/16/16 [Rx] Lactobacillus Acidophilus [Acidophilus] 1 each PO TID #45 capsule 06/16/16 [Rx] Allergies/Adverse Reactions: Allergies No Known Allergies Allergy (Verified 04/12/16 20:08) Date of admission: 06/14/16 00:45 Primary care physician: Dexter Cline DO Discharging clinician: Nicolas Ramirez Anticipated date of discharge: 06/16/16 - Patient Status Disposition: Home, Self-Care Condition: Good Functional capacity at discharge: independent ambulation Overall status at discharge: patient is progressing back to baseline - Discharge Instructions Instructions: Cellulitis (DC) Follow Up With: Darlene Paul CONSULTING NETWORKING ENGINEER [Advanced Practice Nurse] - 06/23/16 1:00 pm Additional Instructions: Follow up with wound care clinic within 1 week. Return to ER if he develop any worsening swelling and redness, fever chills or night sweats, pain. - Diet and Activity Activity: return to work once cleared by your PCP/specialist (Return to work in 3 days if symptoms continue to improve. Otherwise follow up with wound care clinic first before going back to work.) Diet: diabetic diet, low fat, low cholesterol, low salt diet Hospital course: Mr. Kaur is a 55 year old male patient with a history of diabetes mellitus type 2 who presented with recurrent inflammation of his right lower extremity. He has had cellulitis in this leg in March of this year and since then his been following up with wound clinic. He was sent here from the wound clinic due to worsening redness and discharge from this site. He was found to have cellulitis involving this leg and was started on treatment with IV antibiotics. His wound culture is growing strep agalactiae. With IV antibiotics, his cellulitis has significantly improved. Presently there is no open wound. His there is no abscess palpable. There is no discharge. As such, he is stable to be discharged home on oral antibiotics. I have discussed this case with infectious disease and they recommend keeping the patient on Augmentin for 14 days. If the patient develops any worsening symptoms including worsening pain, redness, fever chills or night sweats, he is advised to come to the ER. He will continue to follow up with wound clinic. - Time Spent with Patient Total time spent providing and/or coordinating discharge services: Greater than 30 minutes (35 min) - Constitutional Vitals: Temp Pulse Resp BP Pulse Ox 97.7 F 72 14 125/73 95 06/16/16 07:13 06/16/16 07:13 06/16/16 07:13 06/16/16 07:13 06/16/16 07:13 General appearance: Present: cooperative, A&O X 3, answers questions appropriately - Respiratory Respiratory exam: Present: CTAB. Absent: accessory muscle use, rales, rhonchi, wheezes - Cardiovascular Cardiovascular exam: Present: RRR, +S1, +S2. Absent: diastolic murmur, gallop, rubs, systolic murmur - Extremities Exam Extremities exam: Present: warm, radial pulses palpable and symetrical. Absent : calf tenderness, cyanotic, pedal edema Additional comments: Erythema involving the medial part of the lower third of the right leg within swelling and induration without any fluctuance noted. Erythema restricted to an area of about 10 cm diameter without any discharge. No signs of lymphangitis. - Attending Attestation This document has been at least partially created by [employer] recognition technology by Dr. Ramirez. Errors in grammar, wording or other phrases may exist. If errors are found after the documentation is signed, they will be addressed individually in the addendum section of this document when appropriate.
[2016-06-16 12:01] VITALS: BP 139/84
== END 2016-06-16 15:00 | disposition home or self-care (01) ==
LOC: EMEROO 22:23 → 3ANU 22:23 → SUATTDRO 06-14 00:45 → 3ANU 06-14 00:56
PROVIDERS: ADMIT Internal Medicine; ATTEND Internal Medicine